=== PATIENT | male | born 1950 | race Caucasian/White ===

== ENCOUNTER 2017-08-03 07:50 | Day surgery (SDC) | payer MEDICARE ==
[2017-08-03] MEDS ORDERED: Marcaine 0.5% SDV 10 ML IJ ONE (07:51)
[2017-08-03] MEDS ORDERED: Xylocaine-Mpf 2 ML IJ ONE (07:51)
[2017-08-03] MEDS ORDERED: DIPRIVAN 200 MG/20 ML IV ONE (07:51)
[2017-08-03] MEDS ORDERED: LIDOCAINE HCL 2% 100 MG/5 ML IJ ONE (07:51)
[2017-08-03] MEDS ORDERED: Lactated Ringers 1,000 ML IV ONE (09:13)
--- NOTE | 2017-08-03 10:21 | XRAY ---
Indication: Left knee GNB. Intraoperative fluoroscopy was provided for 52 seconds. 5 digital spot images submitted for interpretation demonstrates 3 anterior needle tips projecting over the distal femur and 1 anterior needle tip projecting over the proximal medial tibia. Correlate with intraoperative findings/report. Incidental anterior tibial plateau orthopedic tack.
--- NOTE | 2017-08-03 12:29 | XRAY ---
52 seconds fluoroscopy time in surgery for left knee GNB.
--- NOTE | 2017-08-04 07:49 | OP ---
DATE OF PROCEDURE: 08/03/2017 0919 SURGEON: Raman Hoover D.O. PREOPERATIVE DIAGNOSES: Degenerative knee disease, osteoarthritis of the knee, knee pain. POSTOPERATIVE DIAGNOSES: Degenerative knee disease, osteoarthritis of the knee, knee pain. PROCEDURE PERFORMED: Left knee genicular nerve block at four levels of superior-medial genicular nerve, superior-lateral genicular nerve, inferior-medial genicular nerve and nerve to suprapatellar rent block at four levels. DESCRIPTION OF THE PROCEDURE: The patient was taken to the operating room and laid in the supine position on the table. The skin over the injection site was prepped and draped in sterile fashion. Under fluoroscope, the target bony structure site was visualized. Induction agent was given as per anesthesia while vital signs were monitored. Local anesthetic agent was introduced to anesthetize the skin in the subcutaneous tissue through the injection site. Under fluoroscopic guidance, a 20-gauge spinal needle was advanced into the target genicular nerves. The preservative free 0.5 cc of 1% lidocaine and 0.5 cc of 0.25 - 0.5% Marcaine were injected into the target nerve. After the needle was removed, the skin was cleansed with alcohol and then a bandage was applied. No complications or adverse consequences were observed. The patient was returned to the holding area until stabilized before being discharged to home. Before the procedure the pain level is 7 out of 10 and after the procedure the pain level is 0 out of 10. The patient will be followed up within 10 days after the injection for re-evaluation.
== END 2017-08-03 10:00 | disposition home or self-care (01) ==
LOC: SDC-PAIN 07:50
PROVIDERS: ATTEND Internal Medicine
DX: M25.552 Pain in left hip (principal); M25.561 Pain in right knee; M62.838 Other muscle spasm; L90.5 Scar conditions and fibrosis of skin
CPT/HCPCS: 64450; 73560; 77003; J2704

== ENCOUNTER 2019-06-04 09:16 | Day surgery (SDC) | payer MEDICARE ==
--- NOTE | 2019-06-04 09:11 | HP ---
AMENDED REPORT: DATE OF SURGERY: 06/04/2019 HISTORY OF PRESENT ILLNESS: The patient is a 68 year-old with no prior colonoscopy. He had an episode of bright rectal bleeding a month ago. No prior colonoscopy. PAST MEDICAL HISTORY: Heart disease and had stents in the past. Diabetes, hypertension. Arthritis. Hypertension. Kidney stones. Back problems. Migraines. Obstructive sleep apnea. Atrial fibrillation in the past. History of psoriasis in the past. He has had scar tissue redness since age 14. PAST SURGICAL HISTORY: He had stents in the past. He had ablation in the past. Knee surgery in the past on left and right. Shoulder surgery on left and right. Had laceration repair in the past. He had hip fracture in the past. Back surgery in the past. Hand surgery in the past. MEDICATIONS: Sumatriptan, Spironolactone, Provigil, metoprolol, Metformin, magnesium oxide, losartan, Klor-Con, Jardiance, hydrocodone, gabapentin, famotidine, Eliquis, clopidogrel, Bydureon. ALLERGIES: SULFA. ATORVASTATIN. FAMILY HISTORY: Negative in regards to this problem. SOCIAL HISTORY: Denies smoking. Occasional alcohol use denies abuse. REVIEW OF SYSTEMS: Fourteen systems reviewed pertinent for multiple medical problems as noted above. PHYSICAL EXAMINATION: GENERAL: No acute distress. HEENT: Sclerae nonicteric. NECK: No JVD. CHEST: Equal excursion, nonlabored breathing. CVS: Regular rate and rhythm. ABDOMEN: Soft. No peritoneal signs. EXTREMITIES: No significant edema. NEURO: Alert, oriented, moving extremities symmetrically. No gross motor deficits noted. RECTAL: Deferred timed to endoscopy exam. IMPRESSION: History of one episode rectal bleeding, history of blood thinner use. He has cardiac clearance. His blood thinners are held. Will proceed with outpatient screening colonoscopy as he has not had a prior one. Risks and benefits explained in detail, not limited to bleeding or infection, risk of bowel injury or perforation possibly requiring open procedure, risk of missed or nondiagnosis or incomplete exam possibly requiring barium enema, other studies or procedures, general risk of anesthesia or sedation, possibility of inability to determine the etiology of his rectal bleeding but not limited to. He understands all of the above but not limited to, will proceed with outpatient screening colonoscopy.
[2019-06-04] MEDS ORDERED: Lactated Ringers 1,000 ML IV ONE ×2 (09:29→12:14)
[2019-06-04] MEDS: Lactated Ringers 1,000 ML IV SCH (09:35)
[2019-06-04] MEDS ORDERED: DIPRIVAN 200 MG/20 ML IV ONE ×2 (12:13)
[2019-06-04 13:40] VITALS: O2SAT 97
[2019-06-04 13:49] VITALS: BP 151/102; PULSE 64
--- NOTE | 2019-06-05 08:37 | OP ---
SURGERY DATE/TIME: 06/04/2019 1156 PREOPERATIVE DIAGNOSIS: Need for screening colonoscopy. He has history of some rectal bleeding in the past but not currently. POSTOPERATIVE DIAGNOSES: 1) Diverticulosis. 2) Redundant folds sigmoid colon. 3) Grade II internal and external hemorrhoids. 4) Limited bowel prep (adequate for avoid missing any large lesions, obstructing lesion but limited for very small lesions given the overall quality of prep). PROCEDURES: Colonoscopy to cecum with cold biopsy of the redundant fold sigmoid colon. SURGEON: Dr. Ezequiel Westbrook. ANESTHESIA: MAC. CIRCULAR KNITTER: Fany Prasad, Medical Student III. ESTIMATED BLOOD LOSS: Minimal. INDICATIONS: As noted above. Risks and benefits explained in detail but not limited to and consent obtained. DESCRIPTION OF PROCEDURE AND FINDINGS: The patient is taken to the operating room. MAC anesthesia introduced. After official time out and no disagreement with planned procedure, digital rectal exam did not reveal any rectal masses. He did have some internal and external hemorrhoids. Video colonoscope inserted and passed up through the tortuous sigmoid, descending, transverse colon and ascending colon. With external pressure the scope was able to be passed. Cecum, appendiceal orifice and valve well visualized. Prep overall was limited with a large amount of liquidy semi-solid stool limiting the exam for very small lesions. However, I felt it was adequate enough to avoid missing any large polyps or obstructing lesions. The scope is slowly and carefully withdrawn. He did have diverticulosis mainly in the left colon. Again, the prep was limited for small lesions. The scope is slowly and carefully withdrawn over the next 9 minutes stopping to suction irrigate as clear as possible. There was redundant fold. Whether he had polyp on that in the past or whether just redundant tissue it was felt to warrant biopsy. Cold biopsy taken. Good hemostasis noted. Otherwise he had diverticulosis, had internal and external hemorrhoids. There were no signs of any large polyps, masses or obstructing lesions. Again, the prep did limit the exam for very small lesions. It was felt that if his path is benign given the quality of his prep, likely he would benefit from follow up colonoscopy in five years. Await ultimate recommendation following final path report.
== END 2019-06-04 13:50 | disposition home or self-care (01) ==
LOC: SDC 09:16
PROVIDERS: ATTEND Surgery
DX: Z12.11 Encounter for screening for malignant neoplasm of colon (principal); K57.30 Diverticulosis of large intestine without perforation or abscess without bleeding; K64.4 Residual hemorrhoidal skin tags; K64.8 Other hemorrhoids; E11.9 Type 2 diabetes mellitus without complications; I10 Essential (primary) hypertension; G47.33 Obstructive sleep apnea (adult) (pediatric); Z86.79 Personal history of other diseases of the circulatory system; Z79.899 Other long term (current) drug therapy
CPT/HCPCS: 82962; G0121; J2704

== ENCOUNTER 2021-05-12 10:29 | Emergency (ER) | payer MEDICARE ==
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
--- NOTE | 2021-05-12 11:26 | XRAY ---
Indication: Chest pain short of breath. Comparison: February 21, 2021. Portable chest demonstrates new cardiomegaly and mild interstitial edema favoring early cardiac decompensation/CHF. Superimposed pneumonia not completely excluded. Bony thorax intact again with osteopenia, degenerative changes, and bilateral shoulder surgery.
[2021-05-12 11:36] LABS: Absolute Neutrophil Ct (ANC) 4.78 (1.4-6.9); Basophil (Absolute #) 0.01 (0-0.4); Eosinophil % 2.4 % (0.00-5.0); Eosinophil (Absolute #) 0.17 (0-0.5); Hematocrit 42.3 % (42-50); Hemoglobin 12.7 gm/dl (12.5-18.0); Lymphocyte (Absolute #) 1.11 (1.0-4.6); Lymphocytes % 15.9 % (24.0-44.0); Mean Corpuscular Hemoglobin 27.6 pg (26-32); Mean Platelet Volume 10.3 fl (7.5-11.0); Monocyte (Absolute #) 0.93 (0.0-1.3); Monocytes % 13.3 % (0.0-12.0); Neutrophil % 68.3 % (36.0-66.0); Platelet Count 270 K/mm3 (150-450)
[2021-05-12 11:40] LABS: INR 1.5 (0.8-3.0); PROTIME 17.7 SECONDS (9.4-12.5)
[2021-05-12 11:51] LABS: COVID AG -BINAX NOW RAPID TEST NEGATIVE (NEGATIVE)
[2021-05-12 11:56] LABS: INFLUENZA A NEGATIVE (NEGATIVE); INFLUENZA B NEGATIVE (NEGATIVE)
[2021-05-12] MEDS ORDERED: Lasix 40 MG/4 ML IV ONE (11:59)
[2021-05-12] MEDS ORDERED: Lasix 40 MG/4 ML ONE (12:01)
[2021-05-12] MEDS ORDERED: Ativan 2 MG/1 ML VIAL IV ONE (12:09)
[2021-05-12] MEDS ORDERED: Ativan 2 MG/1 ML VIAL ONE (12:15)
[2021-05-12 12:35] LABS: ALBUMIN 3.8 g/dL (3.5-5.0); ALKALINE PHOSPHATASE 64 U/L (38-126); ANION GAP 13.9 MEQ/L (5-15); BLOOD UREA NITROGEN 24 mg/dL (9-20); CHLORIDE 105 mmol/L (98-107); Calcium 9.4 mg/dL (8.4-10.2); Carbon Dioxide 25 mmol/L (22-30); Creatinine 1 1.12 mg/dL (0.66-1.25); EST GLOMERULAR FILTRATION RATE > 60.0 ML/MIN; Glucose 131 mg/dL (74-106); Potassium 4.8 mmol/L (3.5-5.1); SGOT/AST 20 U/L (17-59); SGPT/ALT 15 U/L (0-50); SODIUM 139 mmol/L (137-145); Total Protein 6.3 g/dL (6.3-8.2)
--- NOTE | 2021-05-12 13:47 | XRAY ---
Indication: Short of breath. Elevated d-dimer. Multiple contiguous images obtained through the chest using 100 cc Isovue 370 contrast and PE protocol. Comparison: None Good opacification of the pulmonary arteries to includes the lobar and segmental branches. No pulmonary embolus. Heart is enlarged. Aorta is mildly arteriosclerotic without aneurysm/dissection. Incompletely visualized thyromegaly. 2.3 x 2.0 cm right paratracheal prominent lymph node. Tiny right hilar calcified nodes. Lungs demonstrates diffuse pulmonary edema with tiny effusions, right greater than left. Minimal bibasilar subsegmental atelectasis/scarring. No suspicious pulmonary mass. Bony thorax intact with mild osteopenia and mild degenerative changes throughout the thoracic spine. Limited upper abdomen demonstrates tiny splenic calcified granulomas and 2.2 cm left mid renal exophytic cyst. Impression: 1. Negative pulmonary embolus. 2. Cardiomegaly, pulmonary edema, and tiny bilateral effusions favoring cardiac decompensation/CHF. 3. Nonspecific 2.3 x 2.0 cm right paratracheal adenopathy. 4. Incidental incompletely visualized thyromegaly, left renal cyst, chronic bony findings, and old granulomatous disease.
[2021-05-12 14:19] VITALS: BP 129/106; PULSE 68; O2SAT 98
== END 2021-05-12 14:29 | disposition home or self-care (01) ==
LOC: ED 10:29
DX: I11.0 Hypertensive heart disease with heart failure (principal); I50.9 Heart failure, unspecified; R06.02 Shortness of breath; I48.20 Chronic atrial fibrillation, unspecified; Z79.01 Long term (current) use of anticoagulants; I25.10 Atherosclerotic heart disease of native coronary artery without angina pectoris; E11.9 Type 2 diabetes mellitus without complications; Z79.84 Long term (current) use of oral hypoglycemic drugs; G47.33 Obstructive sleep apnea (adult) (pediatric); Z79.891 Long term (current) use of opiate analgesic; Z79.899 Other long term (current) drug therapy
CPT/HCPCS: 36000; 36415; 71045; 71260; 80053; 83605; 83880; 84484; 85025; 85379; 85610; 86308; 87040; 87400; 87651; 93005; 93041; 94760; 96374; 96375; 99000; 99284; J1940; J2060

== ENCOUNTER 2021-12-12 04:50 | Emergency (ER) | payer MEDICARE ==
[2021-12-12] MEDS ORDERED: XYLOCAINE 1%/Epi 1:100000 MDV 20 ML IJ ONE (04:51)
[2021-12-12 04:57] VITALS: O2SAT 96
--- NOTE | 2021-12-12 05:16 | ERPHSYRPT ---
- History of Present Illness Time Seen by Provider: 12/12/21 05:10 Source: patient Exam Limitations: no limitations Patient Subjective Stated Complaint: woke up with mouth bleeding and couldn't get it to stop Triage Nursing Assessment: pt ambulated back into ER. Pt has bleeding to right lower back gum area. Pt states, "I woke up around 4am and my mouth was bleeding and I couldn't get it to stop". Pt had tooth pulled to that area in August. Rt g um area is currently not bleeding and has clot formed to area. Physician History: 71-year-old male with history of atrial fibrillation on Eliquis presented in the ER with chief complaint of bleeding from right lower jaw at tooth extraction site which was done many months ago. Patient reports having feeling of a small tissue while asleep and noticed that he was bleeding with a clot around gums. No pain or known trauma noticed. It was continue to bleed and on presentation he finally has made a clot and no active bleeding. Timing/Duration: abrupt onset Severity: mild ENT Location: dental Associated Symptoms: denies symptoms Allergies/Adverse Reactions: Sulfa (Sulfonamide Antibiotics) Allergy (Unknown, Verified 05/12/21 10:37) pt had reaction as a child, he does not know what happened. empagliflozin [From Jardiance] Adverse Reaction (Severe, Verified 12/12/21 05:05) UTI atorvastatin Adverse Reaction (Mild, Verified 12/12/21 05:04) Joint Aches Home Medications: Apixaban [Eliquis 5 mg Tablet] 5 mg PO BID 07/16/16 [History] Gabapentin [Neurontin] 150 - 300 mg PO BID 07/16/16 [History] Losartan Potassium [Cozaar] 100 mg PO DAILY 07/16/16 [History] Magnesium Oxide 400 mg [Mag-Ox 400] 400 mg PO DAILY 07/16/16 [History] Metformin HCl 1,000 mg PO BID 07/16/16 [History] Metoprolol Succinate 50 mg [Toprol Xl 50 MG] 50 mg PO DAILY 07/16/16 [History] SUMAtriptan succinate [Imitrex] 50 mg PO .PRN 07/16/16 [History] Spironolactone 25 mg [Aldactone 25 MG] 25 mg PO DAILY 07/16/16 [History] Empagliflozin [Jardiance] 10 mg PO DAILY 05/25/19 [History] Hydrocodone/Acetaminophen [Hydrocodon-Acetaminophn 10-500] 1 each PO QID 05/25/19 [History] Ixekizumab [Taltz Autoinjector] 80 mg SQ DIRECTIONS UNKNOWN 05/25/19 [History] Potassium Chloride Tab* [Klor Con] 40 meq PO DAILY 05/25/19 [History] Simvastatin 10 mg PO DAILY 05/25/19 [History] Exenatide Microspheres [Bydureon Bcise] 2 mg SQ WEEKLY 06/04/19 [History] Hx Tetanus, Diphtheria Vaccination/Date Given: Yes Hx Influenza Vaccination/Date Given: No Hx Pneumococcal Vaccination/Date Given: Yes Immunizations Up to Date: Yes Travel Risk - International Travel Have you traveled outside of the country in past 3 weeks: No - Coronavirus Screening Are you exhibiting any of the following symptoms?: No Close contact with a COVID-19 positive Pt in past 14-21 Days: No - Vaccine Status Have you recieved a Covid-19 vaccination: Yes Repairer Handtools: Unknown - Vaccination Dates Date of 2cond Vaccination (if applicable): . Dates if Unknown: . - Review of Systems Constitutional: No Symptoms Eyes: No Symptoms Respiratory: No Symptoms Cardiac: No Symptoms Abdominal/Gastrointestinal: No Symptoms Musculoskeletal: No Symptoms Skin: No Symptoms Neurological: No Symptoms Hematologic/Lymphatic: Easy Bleeding, Gum Bleeding Immunological/Allergic: No Symptoms - Past Medical History Pertinent Past Medical History: Yes Neurological History: No Pertinent History ENT History: Cataracts Cardiac History: Arrhythmia, Coronary Artery Disease Respiratory History: Sleep Apnea Endocrine Medical History: Diabetes Type II Musculoskeletal History: Arthritis GI Medical History: GI Bleed History: No Pertinent History Psycho-Social History: No Pertinent History Male Reproductive Disorders: No Pertinent History - Past Surgical History Past Surgical History: Yes Neuro Surgical History: No Pertinent History Cardiac: Other Respiratory: No Pertinent History Gastrointestinal: No Pertinent History Genitourinary: No Pertinent History Musculoskeletal: Other Male Surgical History: No Pertinent History Other Surgical History: cardiac ablation, bilateral knee acl and other procedures, multiple knee surgeries. bilateral rotator cuff repairs. bilat shoulders,elbow surgery bilat with rods places then removed rods, right wrist surgery, broken ribs pneumothorax from fall 1994, - Social History Smoking Status: Never smoker Exposure to second hand smoke: No Drug Use: none Patient Lives Alone: Yes - Nursing Vital Signs Nursing Vital Signs: Initial Vital Signs Temperature 97.4 F 12/12/21 04:55 Pulse Rate 68 12/12/21 04:55 Respiratory Rate 18 12/12/21 04:55 Blood Pressure 105/70 12/12/21 04:55 O2 Sat by Pulse Oximetry 96 12/12/21 04:55 Pain Scale Pain Intensity 0 - Physical Exam General Appearance: no apparent distress, alert Eye Exam: bilateral eye: normal inspection, PERRL, EOMI Ear Exam: bilateral ear: auricle normal Nasal Exam: normal inspection Throat Exam: normal, pharynx normal, moist mucus membranes, No dental tenderness (Right lower premolar area tooth extraction site bleeding with a clot formation. No active bleeding at present. No gingival swelling.) Neck Exam: normal inspection, non-tender, full range of motion Neurologic Exam: alert, oriented x 3, cooperative Skin Exam: normal color SpO2 Interpretation: normal SpO2: 96 O2 Delivery: Oxymizer - Progress Progress: improved Progress Note: 12/12/21 05:55 patient does have a clot formation already. Given lidocaine with epi soaked dental ball, observed for almost half an hour with no rebleeding. I believe patient probably have a bite/injury to the gum causing bleeding. Recommended outpatient dental follow-up. We will continue with Conor. Counseled pt/family regarding: diagnosis, need for follow-up - Departure Departure Disposition: Home Clinical Impression: Gingival bleeding Condition: Stable Critical Care Time: No Referrals: MARY GRISSOM MD [Primary Care Provider] - Follow Up with PCP/3 days Instructions: Periodontal Disease Additional Instructions: Follow-up with primary care and dentist for reevaluation early next week. Return to ER for worsening bleeding. Continue with Conor.
[2021-12-12 06:05] VITALS: PULSE 89
[2021-12-12 06:06] VITALS: BP 103/73
== END 2021-12-12 06:14 | disposition home or self-care (01) ==
LOC: ED 04:50
DX: K06.8 Other specified disorders of gingiva and edentulous alveolar ridge (principal); E11.9 Type 2 diabetes mellitus without complications; Z79.01 Long term (current) use of anticoagulants; Z79.84 Long term (current) use of oral hypoglycemic drugs; Z79.899 Other long term (current) drug therapy
CPT/HCPCS: 99281

== ENCOUNTER 2022-03-16 09:22 | Emergency (ER) | payer MEDICARE ==
--- NOTE | 2022-03-16 09:28 | ERPHSYRPT ---
- History of Present Illness Time Seen by Provider: 03/16/22 09:28 Source: patient Exam Limitations: no limitations Physician History: This is a 71-year-old white male patient of Dr. Grissom who underwent a right knee replacement approxi-1 month ago. Patient has a history of coronary artery disease and atrial fibrillation and is taking Eliquis. Approximately 2 days ago he noticed drainage from 2 sites on the anterior right knee incision line. There was no odor to the area and the patient has not had any fevers. He called his orthopedic surgeon yesterday and has only taken 2 doses of the antibiotics that he was placed on yesterday. 1 dose was last evening and the second dose was this morning. Patient was concerned about the drainage that was coming from the incision site. He denies any increased pain. Timing/Duration: day(s) (2) Severity: mild Location: extremities (Incision line right anterior knee) Associated Symptoms: denies symptoms Allergies/Adverse Reactions: Sulfa (Sulfonamide Antibiotics) Allergy (Unknown, Verified 03/16/22 09:26) pt had reaction as a child, he does not know what happened. empagliflozin [From Jardiance] Adverse Reaction (Severe, Verified 03/16/22 09:26) UTI atorvastatin Adverse Reaction (Mild, Verified 03/16/22 09:26) Joint Aches Home Medications: Apixaban [Eliquis 5 mg Tablet] 5 mg PO BID 07/16/16 [History] Gabapentin [Neurontin] 150 - 300 mg PO BID 07/16/16 [History] Losartan Potassium [Cozaar] 100 mg PO DAILY 07/16/16 [History] Magnesium Oxide 400 mg [Mag-Ox 400] 400 mg PO DAILY 07/16/16 [History] Metformin HCl 1,000 mg PO BID 07/16/16 [History] Metoprolol Succinate 50 mg [Toprol Xl 50 MG] 50 mg PO DAILY 07/16/16 [History] SUMAtriptan succinate [Imitrex] 50 mg PO .PRN 07/16/16 [History] Spironolactone 25 mg [Aldactone 25 MG] 25 mg PO DAILY 07/16/16 [History] Empagliflozin [Jardiance] 10 mg PO DAILY 05/25/19 [History] Hydrocodone/Acetaminophen [Hydrocodon-Acetaminophn 10-500] 1 each PO QID 05/25/19 [History] Ixekizumab [Taltz Autoinjector] 80 mg SQ DIRECTIONS UNKNOWN 05/25/19 [History] Potassium Chloride Tab* [Klor Con] 40 meq PO DAILY 05/25/19 [History] Simvastatin 10 mg PO DAILY 05/25/19 [History] Exenatide Microspheres [Bydureon Bcise] 2 mg SQ WEEKLY 06/04/19 [History] Hx Tetanus, Diphtheria Vaccination/Date Given: Yes Hx Influenza Vaccination/Date Given: No Hx Pneumococcal Vaccination/Date Given: Yes Travel Risk - International Travel Have you traveled outside of the country in past 3 weeks: No - Coronavirus Screening Are you exhibiting any of the following symptoms?: No Close contact with a COVID-19 positive Pt in past 14-21 Days: No - Vaccine Status Have you recieved a Covid-19 vaccination: Yes Airline 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 Dates if Unknown: . - Review of Systems Constitutional: No Symptoms Eyes: No Symptoms Ears, Nose, & Throat: No Symptoms Respiratory: No Symptoms Cardiac: No Symptoms Abdominal/Gastrointestinal: No Symptoms Genitourinary Symptoms: No Symptoms Musculoskeletal: No Symptoms Skin: Other (Drainage from skin incision site right anterior knee) Neurological: No Symptoms Psychological: No Symptoms Endocrine: No Symptoms Hematologic/Lymphatic: No Symptoms Immunological/Allergic: No Symptoms All Other Systems: Reviewed and Negative - Past Medical History Pertinent Past Medical History: Yes Neurological History: No Pertinent History ENT History: Cataracts Cardiac History: Arrhythmia, Coronary Artery Disease Respiratory History: Sleep Apnea Endocrine Medical History: Diabetes Type II Musculoskeletal History: Arthritis GI Medical History: GI Bleed History: No Pertinent History Psycho-Social History: No Pertinent History Male Reproductive Disorders: No Pertinent History - Past Surgical History Past Surgical History: Yes Neuro Surgical History: No Pertinent History Cardiac: Other Respiratory: No Pertinent History Gastrointestinal: No Pertinent History Genitourinary: No Pertinent History Musculoskeletal: Other Male Surgical History: No Pertinent History Other Surgical History: cardiac ablation, bilateral knee acl and other procedures, multiple knee surgeries. bilateral rotator cuff repairs. bilat shoulders,elbow surgery bilat with rods places then removed rods, right wrist surgery, broken ribs pneumothorax from fall 1994, - Social History Smoking Status: Never smoker Exposure to second hand smoke: No Drug Use: none Patient Lives Alone: Yes - Nursing Vital Signs Nursing Vital Signs: Initial Vital Signs Temperature 97.0 F 03/16/22 09:32 Pulse Rate 72 03/16/22 09:32 Respiratory Rate 19 03/16/22 09:32 Blood Pressure 97/60 03/16/22 09:32 O2 Sat by Pulse Oximetry 98 03/16/22 09:32 Pain Scale Pain Intensity 0 - Physical Exam General Appearance: no apparent distress, alert, anxiety Eye Exam: PERRL/EOMI, eyes nml inspection Ears, Nose, Throat Exam: normal ENT inspection, moist mucous membranes Neck Exam: normal inspection, non-tender, supple, full range of motion Respiratory Exam: airway intact, No chest tenderness, No respiratory distress Cardiovascular Exam: normal peripheral pulses Gastrointestinal/Abdomen Exam: No tenderness Rectal Exam: not done Back Exam: normal inspection, normal range of motion, No CVA tenderness, No vertebral tenderness Extremity Exam: normal inspection, normal range of motion, pelvis stable Neurologic Exam: alert, oriented x 3, cooperative, 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 Small amount of pus from the upper skin dehiscence site. Serosanguineous fluid present.) SpO2 Interpretation: normal O2 Delivery: Room Air - Course Nursing assessment & vital signs reviewed: Yes Ordered Tests: Active Orders 24 hr Category Date Time Status CULTURE,WOUND Stat Lab 03/16/22 09:41 Ordered - Progress Progress: unchanged Counseled pt/family regarding: diagnosis, need for follow-up - Departure Departure Disposition: Home Clinical Impression: Postoperative dehiscence of skin wound, Skin infection of right knee Condition: Critical Care Time: No Referrals: MARY GRISSOM MD [Primary Care Provider] - Follow up/PCP as directed Additional Instructions: Minimize bending of the right knee. Keep the current dressing in place until the morning of 03/17/2022. At that time, remove the Jimy bandage and the underlying bandage and wash the site with soap and water. Blot dry use a hairdryer to dry the site and then replace a new bandage and rewrap with the old Jimy wrap. Keep that dressing on until Thursday morning, the morning of your appointment with your orthopedic surgeon. Continue antibiotics as prescribed. Stop your Eliquis blood thinning medication.
[2022-03-16 09:38] VITALS: BP 97/60; PULSE 72; O2SAT 98
== END 2022-03-16 10:14 | disposition home or self-care (01) ==
LOC: ED 09:22
DX: T81.31XA Disruption of external operation (surgical) wound, not elsewhere classified, initial encounter (principal); T81.41XA Infection following a procedure, superficial incisional surgical site, initial encounter; L08.9 Local infection of the skin and subcutaneous tissue, unspecified; E11.9 Type 2 diabetes mellitus without complications; Z79.01 Long term (current) use of anticoagulants; Z79.891 Long term (current) use of opiate analgesic; Z79.899 Other long term (current) drug therapy
CPT/HCPCS: 87070; 87077; 87186; 99283

== ENCOUNTER 2023-02-16 15:30 | Observation (INO) | payer MEDICARE ==
--- NOTE | 2023-02-16 15:51 | ERPHSYRPT ---
- History of Present Illness Source: patient Exam Limitations: no limitations Timing/Duration: yesterday Severity: mild Associated Symptoms: shortness of breath, weakness, No chest pain (Occasional, mild) Hx Tetanus, Diphtheria Vaccination/Date Given: Yes Hx Influenza Vaccination/Date Given: No Hx Pneumococcal Vaccination/Date Given: Yes <BEE KELSEY - Last Filed: 02/16/23 19:20> <GALILEO DÍAZ - Last Filed: 02/16/23 20:57> - History of Present Illness Time Seen by Provider: 02/16/23 15:51 Physician History: This is a 72-year-old white male who is a patient of Dr. 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 Patient is on Eliquis and amiodarone for treatment of atrial fibrillation. He has had cardiac ablation twice and also cardioversion in the past. Recently, he had a watchman's device placed. Patient states he is still taking Eliquis. However, he is unsure whether he took his medicine this morning. His son provided additional, independent history and states that this patient has been a little more confused over the last few days. His blood sugar level on arrival to the emergency department 163. His initial blood pressure upon entrance in the emergency department was approximately 151/102. However, after 2 more readings, without any pharmacologic intervention, the blood pressure was approximately 147/94. Patient denies chest pain. He is on occasion short of breath. After his procedure of placement of watchman's device, patient had experienced some congestive heart failure. He did take a as needed Lasix a couple days ago. Patient has not had a cough. He has not had a fever. Patient has multiple medical problems including diabetes, migraine headaches, hyperlipidemia, hypothyroidism, diabetes and coronary artery disease. He does have a history of hypertension. Patient has had a cardiac stent placed in the past and has undergone a CABG procedure. (BEE KELSEY) Allergies/Adverse Reactions: Sulfa (Sulfonamide Antibiotics) Allergy (Unknown, Verified 02/16/23 15:40) pt had reaction as a child, he does not know what happened. empagliflozin [From Jardiance] Adverse Reaction (Severe, Verified 02/16/23 15:40) UTI atorvastatin Adverse Reaction (Mild, Verified 02/16/23 15:40) Joint Aches Home Medications: Amiodarone HCl 200 mg [Cordarone 200 MG] 1 tab PO DAILY 02/16/23 [History] Amlodipine Besylate 5 mg [Norvasc 5 mg] 0 mg PO DAILY 02/16/23 [History] Apixaban [Eliquis] See Rx Instructions .ROUTE .COMPLEX 02/16/23 [History] Aspirin EC 81 mg [Ecotrin 81 mg] 1 tab PO DAILY 02/16/23 [History] Aspirin/Acetaminophen/Caffeine [Excedrin Extra Strength Caplet] 1 each PO DAILY PRN PRN 02/16/23 [History] Furosemide [Lasix] 1 tab PO DAILY PRN 02/16/23 [History] Hydrocodone/Acetaminophen [Hydrocodone-Acetamin 7.5-325] 1 tab PO QID PRN 02/16/23 [History] Metformin HCl 500 mg [Glucophage 500 MG] 1,000 mg PO BID 02/16/23 [History] Methimazole 10 mg PO DAILY 02/16/23 [History] Metoprolol Succinate 50 mg [Toprol Xl 50 MG] 1 tab PO DAILY 02/16/23 [History] Semaglutide [Ozempic] 0.25 mg SQ WEEKLY 02/16/23 [History] Tamsulosin HCl 0.4 mg [Flomax 0.4 MG] 1 cap PO DAILY 02/16/23 [History] Travel Risk - International Travel Have you traveled outside of the country in past 3 weeks: No - Coronavirus Screening Are you exhibiting any of the following symptoms?: Yes Symptoms: Shortness of Breath Close contact with a COVID-19 positive Pt in past 14-21 Days: No - Vaccine Status Have you recieved a Covid-19 vaccination: Yes Bumboater: Unknown - Vaccination Dates Date of 2cond Vaccination (if applicable): . Dates if Unknown: . <BEE KELSEY - Last Filed: 02/16/23 19:20> - Review of Systems Constitutional: Weakness Eyes: No Symptoms Ears, Nose, & Throat: No Symptoms Respiratory: Dyspnea (Mild) Cardiac: No Symptoms Abdominal/Gastrointestinal: No Symptoms Genitourinary Symptoms: No Symptoms Musculoskeletal: No Symptoms Skin: No Symptoms Neurological: Other (Vision change in his left eye over a day ago) Psychological: No Symptoms Endocrine: No Symptoms Hematologic/Lymphatic: No Symptoms Immunological/Allergic: No Symptoms All Other Systems: Reviewed and Negative <BEE KELSEY - Last Filed: 02/16/23 19:20> - Past Medical History Pertinent Past Medical History: Yes Neurological History: No Pertinent History ENT History: Cataracts Cardiac History: Arrhythmia, Coronary Artery Disease, High Cholesterol, Hypertension Respiratory History: Sleep Apnea Endocrine Medical History: Diabetes Type II, Hyperthyroidism Musculoskeletal History: Degenerative Disk Disease, Osteoarthritis GI Medical History: GI Bleed History: No Pertinent History Psycho-Social History: No Pertinent History Male Reproductive Disorders: No Pertinent History Other Medical History: HX OF A-FIB WITH CARDIOVERSION X 2 AND SCHEDULED FOR ANOTHER 01/25/23 WITH WATCHMAN PLACEMENT. HX OF CAD WITH CABG X 2 AND STENTS X 2. BILATERAL SHOULDER SXs - LEFT 2006 RC REPAIR, RIGHT 2015 WITH RC AND BICEPS REPAIR. HX OF BILATERAL KNEE REPLACEMENT 02/2022 RIGHT, 07/01 LEFT. HX OF STAPH INFECTION RIGHT REQUIRING SECOND SURGERY. LEFT KNEE HAD HEMATOMA REQUIRING DRAINING AND CONTINUES TO HAVE TENDERNESS. ONLY THERAPY WAS HOME HEALTH. - Past Surgical History Past Surgical History: Yes Neuro Surgical History: No Pertinent History Cardiac: Other Respiratory: No Pertinent History Gastrointestinal: No Pertinent History Genitourinary: No Pertinent History Musculoskeletal: Other Male Surgical History: No Pertinent History Other Surgical History: cardiac ablation, bilateral knee acl and other procedures, multiple knee surgeries. bilateral rotator cuff repairs. bilat shoulders,elbow surgery bilat with rods places then removed rods, right wrist surgery, broken ribs pneumothorax from fall 1994, - Social History Smoking Status: Never smoker Exposure to second hand smoke: No Drug Use: none Patient Lives Alone: Yes <BEE KELSEY - Last Filed: 02/16/23 19:20> - Physical Exam General Appearance: no apparent distress, alert Eye Exam: PERRL/EOMI, eyes nml inspection Ears, Nose, Throat Exam: normal ENT inspection, moist mucous membranes Neck Exam: normal inspection, non-tender, supple, full range of motion Respiratory Exam: normal breath sounds, lungs clear, airway intact, No chest tenderness, No respiratory distress Cardiovascular Exam: regular rate/rhythm, normal heart sounds, normal peripheral pulses Gastrointestinal/Abdomen Exam: soft, normal bowel sounds, No tenderness Rectal Exam: not done Back Exam: normal inspection, normal range of motion, No CVA tenderness Extremity Exam: normal inspection, normal range of motion, pelvis stable Neurologic Exam: alert, oriented x 3, cooperative, 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, normal mood/affect, nml cerebellar function, nml station & gait, sensation nml, No facial droop Skin Exam: normal color, warm, dry Lymphatic Exam: No adenopathy SpO2 Interpretation: normal O2 Delivery: Room Air <BEE KELSEY - Last Filed: 02/16/23 19:20> - Nursing Vital Signs Nursing Vital Signs: Initial Vital Signs Temperature 98.1 F 02/16/23 15:30 Pulse Rate 70 02/16/23 15:30 Respiratory Rate 28 H 02/16/23 15:30 Blood Pressure 152/103 02/16/23 15:30 O2 Sat by Pulse Oximetry 96 02/16/23 15:30 Pain Scale Pain Intensity 3 - Course Nursing assessment & vital signs reviewed: Yes EKG Interpreted by Me: RATE (68), Sinus Rhythm, Right [place] Deviation (Borderline), NORMAL INTERVALS, NORMAL QRS, NORMAL ST-T, Other (No acute isch emic changes on today's twelve-lead EKG.) <BEE KELSEY - Last Filed: 02/16/23 19:20> Ordered Tests: Active Orders 24 hr Category Date Time Status Hull Grinder STAT Care 02/16/23 16:00 Active EKG-ER Only STAT Care 02/16/23 16:00 Active IV Insertion STAT Care 02/16/23 16:00 Active POCT Glucose Check STAT Care 02/16/23 15:48 Active Pulse Oximetry (ED) STAT Care 02/16/23 16:00 Active CHEST 1 VIEW (PORTABLE) Stat Exams 02/16/23 16:13 Completed HEAD WITHOUT CONTRAST [CT] Stat Exams 02/16/23 16:01 Completed CBC W DIFF Stat Lab 02/16/23 16:10 Completed CMP Stat Lab 02/16/23 16:10 Completed MAGNESIUM Stat Lab 02/16/23 16:10 Completed NT PRO BNPII Stat Lab 02/16/23 16:10 Completed POCT GLUCOSE Stat Lab 02/16/23 15:44 Completed T4 (Thyroxine) Stat Lab 02/16/23 16:10 Completed TROPONIN Q4H Lab 02/16/23 16:10 Completed TROPONIN Q4H Lab 02/16/23 20:32 Received TROPONIN Q4H Lab 02/17/23 00:00 Ordered TSH [TSH, 3RD Generation] Stat Lab 02/16/23 16:10 Completed UA W/RFX UR CULTURE Stat Lab 02/16/23 16:08 Completed Transfer Order Routine Transfer 02/16/23 Ordered Medication Summary Discontinued Medications Generic Name Dose Route Start Last Admin Trade Name Freq PRN Reason Stop Dose Admin Furosemide 40 mg 02/16/23 16:54 02/16/23 17:10 Furosemide 40 Mg/4 Ml Vial IV 02/16/23 16:55 40 mg STAT ONE Administration Furosemide Confirm 02/16/23 17:05 Furosemide 40 Mg/4 Ml Vial Administered 02/16/23 17:06 Dose 40 mg .ROUTE .STK-MED ONE Morphine Sulfate 2 mg 02/16/23 16:48 02/16/23 16:50 Morphine Sulfate 2 Mg/Ml Inj IV 02/16/23 16:49 Not Given STAT ONE Morphine Sulfate 2 mg 02/16/23 18:28 02/16/23 18:34 Morphine Sulfate 2 Mg/Ml Inj IV 02/16/23 18:29 2 mg STAT ONE Administration Morphine Sulfate Confirm 02/16/23 18:33 Morphine Sulfate 2 Mg/Ml Inj Administered 02/16/23 18:34 Dose 2 mg .ROUTE .STK-MED ONE Ondansetron HCl 4 mg 02/16/23 18:23 02/16/23 18:34 Ondansetron Hcl 4 Mg/2 Ml Vial IV 02/16/23 18:24 4 mg STAT ONE Administration Ondansetron HCl Confirm 02/16/23 18:32 Ondansetron Hcl 4 Mg/2 Ml Vial Administered 02/16/23 18:33 Dose 4 mg .ROUTE .STK-MED ONE Lab/Rad Data: Laboratory Result Diagrams 02/16/23 16:10 02/16/23 16:10 Laboratory Results 02/16/23 02/16/23 02/16/23 Range/Units 16:10 16:10 16:10 WBC (4.0-10.5) x10^3/uL RBC (4.1-5.6) x10^6/uL Hgb (12.5-18.0) g/dL Hct (42-50) % MCV (78-100) fL MCH (26-32) pg MCHC (32-36) g/dL RDW (11.5-14.0) % Plt Count (150-450) x10^3/uL MPV (7.5-11.0) fL Gran % (36.0-66.0) % Immature Gran % (Auto) (0.00-0.4) % Nucleat RBC Rel Count (0.00-0.1) % Eos # (Auto) (0-0.5) x10^3/uL Immature Gran # (Auto) (0.00-0.03) x10^3u/L Absolute Lymphs (auto) (1.0-4.6) x10^3/uL Absolute Monos (auto) (0.0-1.3) x10^3/uL Absolute Nucleated RBC (0.00-0.01) x10^3u/L Lymphocytes % (24.0-44.0) % Monocytes % (0.0-12.0) % Eosinophils % (0.00-5.0) % Basophils % (0.0-0.4) % Absolute Granulocytes (1.4-6.9) x10^3/uL Basophils # (0-0.4) x10^3/uL Sodium 133 L (137-145) mmol/L Potassium 5.0 (3.5-5.1) mmol/L Chloride 102 (98-107) mmol/L Carbon Dioxide 21 L (22-30) mmol/L Anion Gap 14.8 (5-15) MEQ/L BUN 30 H (9-20) mg/dL Creatinine 1.11 (0.66-1.25) mg/dL Estimated GFR 71.4 ML/MIN Glucose 153 H (74-106) mg/dL POC Glucometer (74 to 106) mg/dL Calcium 9.2 (8.4-10.2) mg/dL Magnesium 2.1 (1.6-2.3) mg/dL Total Bilirubin 0.50 (0.2-1.3) mg/dL AST 19 (17-59) U/L ALT 20 (0-50) U/L Alkaline Phosphatase 117 (38-126) U/L Troponin I 0.025 (0.000-0.034) ng/mL NT-Pro-B Natriuret Pep 2510 (<300) pg/mL Serum Total Protein 6.0 L (6.3-8.2) g/dL Albumin 3.6 (3.5-5.0) g/dL Thyroxine (T4) 14.7 H (5.53-10.96) ug/dL TSH 3rd Generation < 0.015 L (0.47-4.68) mIU/L Urine Color (Yellow) Urine Appearance (Clear) Urine pH (4.6-8.0) Ur Specific [place] (1.005-1.030) Urine Protein (Negative) Urine Glucose (UA) (Negative) mg/dL Urine Ketones (Negative) Urine Blood (Negative) Urine Nitrite (Negative) Urine Bilirubin (Negative) Urine Urobilinogen (0.2) mg/dL Ur Leukocyte Esterase (Negative) U Hyaline Cast (Auto) (0-2) /LPF Urine Microscopic RBC (0-5) /HPF Urine Microscopic WBC (0-5) /HPF Ur Epithelial Cells (None Seen) /HPF Urine Bacteria (None Seen) /HPF Urine Culture Reflexed (NO) Slides for Path Review 02/16/23 02/16/23 02/16/23 Range/Units 16:10 16:08 15:44 WBC 10.2 (4.0-10.5) x10^3/uL RBC 3.73 L (4.1-5.6) x10^6/uL Hgb 10.2 L (12.5-18.0) g/dL Hct 34.0 L (42-50) % MCV 91.2 (78-100) fL MCH 27.3 (26-32) pg MCHC 30.0 L (32-36) g/dL RDW 13.7 (11.5-14.0) % Plt Count 355 (150-450) x10^3/uL MPV 9.7 (7.5-11.0) fL Gran % 82.8 H (36.0-66.0) % Immature Gran % (Auto) 0.8 H (0.00-0.4) % Nucleat RBC Rel Count 0.0 (0.00-0.1) % Eos # (Auto) 0.01 (0-0.5) x10^3/uL Immature Gran # (Auto) 0.08 H (0.00-0.03) x10^3u/L Absolute Lymphs (auto) 0.56 L (1.0-4.6) x10^3/uL Absolute Monos (auto) 1.09 (0.0-1.3) x10^3/uL Absolute Nucleated RBC 0.00 (0.00-0.01) x10^3u/L Lymphocytes % 5.5 L (24.0-44.0) % Monocytes % 10.7 (0.0-12.0) % Eosinophils % 0.1 (0.00-5.0) % Basophils % 0.1 (0.0-0.4) % Absolute Granulocytes 8.43 H (1.4-6.9) x10^3/uL Basophils # 0.01 (0-0.4) x10^3/uL Sodium (137-145) mmol/L Potassium (3.5-5.1) mmol/L Chloride (98-107) mmol/L Carbon Dioxide (22-30) mmol/L Anion Gap (5-15) MEQ/L BUN (9-20) mg/dL Creatinine (0.66-1.25) mg/dL Estimated GFR ML/MIN Glucose (74-106) mg/dL POC Glucometer 163 H (74 to 106) mg/dL Calcium (8.4-10.2) mg/dL Magnesium (1.6-2.3) mg/dL Total Bilirubin (0.2-1.3) mg/dL AST (17-59) U/L ALT (0-50) U/L Alkaline Phosphatase (38-126) U/L Troponin I (0.000-0.034) ng/mL NT-Pro-B Natriuret Pep (<300) pg/mL Serum Total Protein (6.3-8.2) g/dL Albumin (3.5-5.0) g/dL Thyroxine (T4) (5.53-10.96) ug/dL TSH 3rd Generation (0.47-4.68) mIU/L Urine Color Yellow (Yellow) Urine Appearance Clear (Clear) Urine pH 6.5 (4.6-8.0) Ur Specific [place] 1.020 (1.005-1.030) Urine Protein Trace A (Negative) Urine Glucose (UA) 100 A (Negative) mg/dL Urine Ketones Negative (Negative) Urine Blood Negative (Negative) Urine Nitrite Negative (Negative) Urine Bilirubin Negative (Negative) Urine Urobilinogen 2.0 A (0.2) mg/dL Ur Leukocyte Esterase Negative (Negative) U Hyaline Cast (Auto) NONE SEEN (0-2) /LPF Urine Microscopic RBC 0-2 (0-5) /HPF Urine Microscopic WBC 0-2 (0-5) /HPF Ur Epithelial Cells None Seen (None Seen) /HPF Urine Bacteria None Seen (None Seen) /HPF Urine Culture Reflexed NO (NO) Slides for Path Review YES - Progress Progress: improved, re-examined Counseled pt/family regarding: lab results, diagnosis, rad results <BEE KELSEY - Last Filed: 02/16/23 19:20> <GALILEO DÍAZ - Last Filed: 02/16/23 20:57> - Progress Progress Note: 02/16/23 16:23 This patient's medical issue is 1 of moderate complexity. The level complexity in the work-up performed is based on review of the patient's past medical histor y, review of the patient's medication list, review the patient's drug allergy list, history present illness and physical findings on examination. The work-up in this patient includes placement of intravenous line, twelve-lead EKG, troponin level, BNP level, chest x-ray, CT scan of the head, CBC, CMP and urinalysis. 02/16/23 16:39 I was just notified by Dr. Calvillo, our in-house radiologist that this patient has a large acute ischemia of the right temporal parietal lobe. No acute hemorrhage/mass effect. There are chronic changes including atrophy, degenerative microischemia and remote lacunar infarct of the right basal ganglia on the CT scan without contrast. 02/16/23 16:45 02/16/23 18:45 We had put a call into [facility] and sent the CT scan of the head results to [facility]. The hospitalist and the neurologist were conversing and ultimately just called us back to tell us that this patient needs to go to a different facility. The [facility] facility is full and cannot accept any patients at this time. We will try another facility. 02/16/23 19:20 [facility] was contacted as well. However, they were only excepting STEMI's and acute strokes. This patient was not excepted. I then spoke to Dr. Galileo Díaz who is taking over for me and the emergency department at shift change. In our opinion, this patient only needs work-up and rehab and no emergent i ntervention required. He is taking over the care of this patient and will contact the telehospitalist and see if they accept this patient for admission here at [facility]. (BEE KELSEY) Patient a 72-year-old male presents to our ED for evaluation of possible stroke. History of atrial fibrillation. Patient on Eliquis. Per report patient has had a Watchman procedure performed. Patient reportedly had a stroke possibly within the past 36 to 48 hours. Area of stroke observed on today's CAT scan at the right parietal region. Patient NIH score was 1. Telemetry neuro advises holding the Eliquis. Patient may have aspirin. Patient requested transfer to [facility] which is where his lmft and primary care provider are. However they currently do not have a bed available. Patient is currently on the wait list. In the meantime patient will be admitted to [facility] per his request. Case discussed with Dr. Murrell at 8:48 PM who accepts admission to observation. Patient reassessed. He is in good spirits he is conversant well-appearing and in no acute distress. Vital stable. Patient voices no other complaints or concerns at this time. Portions of this note were created with voice recognition technology. There may be grammatical, spelling, punctuation or sound alike errors 02/16/23 20:54 (GALILEO DÍAZ) Medical Desision Making - Independent Historian Additional History obtained from: Family - Diagnostic Testing Diagnostic test were ordered, analyzed, and reviewed by me: Yes Radiological Interpretation: Reviewed by me, Teleradiologist Report - Risk of complications The pt has a high risk of morbidity or mortality based on: Decision regarding hospitilization or escalation of hosp level of care <BEE KELSEY - Last Filed: 02/16/23 19:20> - Departure Departure Disposition: Transfer Critical Care Time: Yes Critical Care Time(excluding separately billable procedures): Critical 30-74 mins (50 minutes) <BEE KELSEY - Last Filed: 02/16/23 19:20> - Departure Departure Disposition: Observation <GALILEO DÍAZ - Last Filed: 02/16/23 20:57> - Departure Clinical Impression: Cerebral ischemia, Hypertension Condition: Stable Referrals: MARY GRISSOM MD [Primary Care Provider] - Follow up/PCP as directed
[2023-02-16 16:14] LABS: Absolute Neutrophil Ct (ANC) 8.43 x10^3/uL (1.4-6.9); BASOPHIL % 0.1 % (0.0-0.4); Basophil (Absolute #) 0.01 x10^3/uL (0-0.4); Eosinophil % 0.1 % (0.00-5.0); Eosinophil (Absolute #) 0.01 x10^3/uL (0-0.5); Hemoglobin 10.2 g/dL (12.5-18.0); IMMATURE GRAN # 0.08 x10^3u/L (0.00-0.03); IMMATURE GRAN % 0.8 % (0.00-0.4); Lymphocyte (Absolute #) 0.56 x10^3/uL (1.0-4.6); Lymphocytes % 5.5 % (24.0-44.0); Mean Cell Volume 91.2 fL (78-100); Mean Corpuscular Hemoglobin 27.3 pg (26-32); Mean Platelet Volume 9.7 fL (7.5-11.0); Monocyte (Absolute #) 1.09 x10^3/uL (0.0-1.3); Monocytes % 10.7 % (0.0-12.0); Neutrophil % 82.8 % (36.0-66.0); Platelet Count 355 x10^3/uL (150-450); Red Blood Count 3.73 x10^6/uL (4.1-5.6); Red Cell Distribution Width 13.7 % (11.5-14.0); White Blood Count 10.2 x10^3/uL (4.0-10.5)
[2023-02-16 16:28] LABS: ADD URINE CULTURE? NO (NO); Appearance Clear (Clear); Bacteria None Seen /HPF (None Seen); Bilirubin Negative (Negative); Blood Negative (Negative); Epithelial Cells None Seen /HPF (None Seen); Glucose, Urine 100 mg/dL (Negative); Hyaline Casts NONE SEEN /LPF (0-2); Ketones Negative (Negative); Leukocyte Esterase Negative (Negative); Nitrite Negative (Negative); Ph 6.5 (4.6-8.0); Protein,Urine Dip Trace (Negative); RBC 0-2 /HPF (0-5); WBC 0-2 /HPF (0-5)
[2023-02-16 16:41] LABS: ALBUMIN 3.6 g/dL (3.5-5.0); ANION GAP 14.8 MEQ/L (5-15); BILIRUBIN,TOTAL 0.5 mg/dL (0.2-1.3); Calcium 9.2 mg/dL (8.4-10.2); Creatinine 1 1.11 mg/dL (0.66-1.25); EST GLOMERULAR FILTRATION RATE 71.4 ML/MIN; MAGNESIUM 2.1 mg/dL (1.6-2.3); TROPONIN 0.025 ng/mL (0.000-0.034)
--- NOTE | 2023-02-16 16:45 | XRAY ---
Indication: Short of breath. Hypertension. Comparison: May 19, 2021 Portable chest again demonstrates cardiomegaly and tiny right base calcified granuloma. No focal infiltrate, consolidation, or large effusion. Bony thorax intact again with osteopenia, mild degenerative changes, and remote right shoulder surgery. Impression: Continued nonacute chest with chronic features.
--- NOTE | 2023-02-16 16:45 | XRAY ---
Indication: Left vision change. Confusion. Hypertension. Multiple contiguous axial images obtained through the head without contrast. Comparison: None Age-appropriate global atrophy and mild periventricular degenerative micro-ischemia bilaterally. Remote lacunar infarct right basal ganglia. Right mid to posterior temporal parietal lobe demonstrates large focus of cortical/subcortical hypoattenuation favoring acute ischemia. No acute hemorrhage or mass effect. Fourth ventricle is midline without hydrocephalus. Bony calvarium intact. Visualized paranasal sinuses and mastoid air cells are clear. Impression: 1. Large acute ischemia right temporal parietal lobe. No acute hemorrhage/mass effect. 2. Chronic findings including atrophy, degenerative micro-ischemia, and remote lacunar infarct right basal ganglia. Comment: Telephone report given to the ordering clinician, Dr. Meadows at 1638 hrs. on February 16, 2023.
[2023-02-16] MEDS ORDERED: MORPHINE SULFATE 2 MG INJ IV ONE ×2 (16:48→18:28)
[2023-02-16 16:50] LABS: Slide Review 1 YES
[2023-02-16] MEDS ORDERED: Lasix 40 MG/4 ML IV ONE (16:54)
[2023-02-16] MEDS ORDERED: Lasix 40 MG/4 ML ONE (17:05)
[2023-02-16] MEDS ORDERED: Zofran 4 MG/2 ML VIAL IV ONE (18:23)
[2023-02-16] MEDS ORDERED: Zofran 4 MG/2 ML VIAL ONE (18:32)
[2023-02-16] MEDS ORDERED: MORPHINE SULFATE 2 MG INJ ONE (18:33)
[2023-02-16] MEDS ORDERED: NON-FORMULARY ITEM (Semaglutide [Ozempic] 0.25 MG/0.368 ML Pen.Injctr) SQ SCH (23:45)
[2023-02-16] MEDS ORDERED: ACETAMINOPHEN PO PRN (23:48)
[2023-02-16] MEDS ORDERED: NORCO 7.5/325 MG TAB PO PRN (23:48)
[2023-02-16] MEDS ORDERED: ASPIRIN PO PRN (23:48)
[2023-02-16] MEDS ORDERED: [UNRECOGNIZED DRUG - OTHER] PO PRN (23:48)
[2023-02-16] MEDS ORDERED: CAFFEINE PO PRN (23:48)
--- NOTE | 2023-02-16 23:49 | PCM.HP ---
History of Present Illness - Chief Complaint Chief Complaint: Stroke Date: 02/16/23 History of Present Illness: This is a 72-year-old male admitted after found to have acute stroke. He has past medical history of A-fib on Eliquis and amiodarone as well as prior cardiac ablation and cardioversion and Watchman device, diabetes, hyperlipidemia, hyperthyroid, CAD. He presented to the ED for evaluation of vision changes in the left eye. On arrival he was afebrile, heart rate 70, blood pressure 152/103. Labs significant for WBC 10, hemoglobin 10, platelets 355, sodium 133, serum bicarb 21, glucose 153, TSH undetectable, T4 14.7, UA trace protein and [address] head showed large acute ischemia in the right temporal parietal lobe no hemorrhage or mass effect. Chronic findings including atrophy degenerative microischemia and remote lacunar infarct right basal ganglia. Patient was seen by neurology who recommended continuing aspirin but holding full anticoagulation. Attempts were made to transfer patient for higher level of care however no excepting facility at this time. Currently he reports persistent poor vision. He states right eye is chronically bad. Left eye he is having depth perception difficulties. He also reports new onset [place]. He was feeling dizzy and incoherent but that is better. - Review of Systems Eyes: Vision Changes Ears, Nose, & Throat: No Symptoms Respiratory: No Symptoms Cardiac: No Symptoms Abdominal/Gastrointestinal: No Symptoms Genitourinary Symptoms: No Symptoms Musculoskeletal: No Symptoms Skin: No Symptoms Neurological: No Symptoms Psychological: No Symptoms Endocrine: No Symptoms Medications & Allergies Home Medications: Home Medication List Amiodarone HCl 200 mg [Cordarone 200 MG] 200 mg PO DAILY 02/16/23 [History Confirmed 02/16/23] Amlodipine Besylate 5 mg [Norvasc 5 mg] 0 mg PO DAILY 02/16/23 [History Confirmed 02/16/23] Apixaban [Eliquis] 5 mg PO BID 02/16/23 [History Confirmed 02/16/23] Aspirin EC 81 mg [Ecotrin 81 mg] 81 mg PO DAILY 02/16/23 [History Confirmed 02/16/23] Aspirin/Acetaminophen/Caffeine [Excedrin Extra Strength Caplet] 1 tab PO DAILY PRN PRN 02/16/23 [History Confirmed 02/16/23] Furosemide [Lasix] 40 mg PO DAILY PRN PRN 02/16/23 [History Confirmed 02/16/23] Hydrocodone/Acetaminophen [Hydrocodone-Acetamin 7.5-325] 1 tab PO Q4-6HPRN PRN 02/16/23 [History Confirmed 02/16/23] Metformin HCl 500 mg [Glucophage 500 MG] 1,000 mg PO BIDAC 02/16/23 [History Confirmed 02/16/23] Metoprolol Succinate 50 mg [Toprol Xl 50 MG] 50 mg PO DAILY 02/16/23 [History Confirmed 02/16/23] Non-Formulary Drug [Non-Formulary Bulk Item] 2 tab PO DAILY 02/16/23 [History Confirmed 02/16/23] Rosuvastatin Calcium 10 mg PO QHS 02/16/23 [History Confirmed 02/16/23] Semaglutide [Ozempic] 0.25 mg SQ WEEKLY 02/16/23 [History Confirmed 02/16/23] Sumatriptan Succinate [Imitrex] 100 mg PO DAILY PRN PRN 02/16/23 [History Confi rmed 02/16/23] Tamsulosin HCl 0.4 mg [Flomax 0.4 MG] 0.4 mg PO QHS 02/16/23 [History Confirmed 02/16/23] Allergies/Adverse Reactions: Allergies Allergy/AdvReac Type Severity Reaction Status Date / Time Sulfa (Sulfonamide Allergy Unknown Verified 02/16/23 15:40 Antibiotics) empagliflozin AdvReac Severe Verified 02/16/23 15:40 [From Jardiance] atorvastatin AdvReac Mild Joint Aches Verified 02/16/23 15:40 - Past Medical History Past Medical History: Yes Neurological History: Stroke ENT History: Cataracts Cardiac History: Arrhythmia, Coronary Artery Disease, High Cholesterol, Hypertension Respiratory History: Sleep Apnea Endocrine Medical History: Diabetes Type II, Hyperthyroidism Musculoskelatal History: Degenerative Disk Disease, Osteoarthritis GI Medical History: GI Bleed History: No Pertinent History Pyscho-Social History: No Pertinent History Male Reproductive Disorders: No Pertinent History Comment: HX OF A-FIB WITH CARDIOVERSION X 2 AND SCHEDULED FOR ANOTHER 01/25/23 WITH WATCHMAN PLACEMENT. HX OF CAD WITH CABG X 2 AND STENTS X 2. BILATERAL SHOULDER SXs - LEFT 2006 RC REPAIR, RIGHT 2015 WITH RC AND BICEPS REPAIR. HX OF BILATERAL KNEE REPLACEMENT 02/2022 RIGHT, 07/01 LEFT. HX OF STAPH INFECTION RIGHT REQUIRING SECOND SURGERY. LEFT KNEE HAD HEMATOMA REQUIRING DRAINING AND CONTINUES TO HAVE TENDERNESS. ONLY THERAPY WAS HOME HEALTH. - Past Surgical History Past Surgical History: Yes Neuro Surgical History: No Pertinent History Cardiac History: Other Respiratory Surgery: No Pertinent History GI Surgical History: No Pertinent History Genitourinary Surgical Hx: No Pertinent History Musculskeletal Surgical Hx: Other Male Surgical History: No Pertinent History Other Surgical History: cardiac ablation, bilateral knee acl and other procedures, multiple knee surgeries. bilateral rotator cuff repairs. bilat shoulders,elbow surgery bilat with rods places then removed rods, right wrist surgery, broken ribs pneumothorax from fall 1994, - Social History Smoking Status: Never smoker Exposure to second hand smoke: No Alcohol: None Drug Use: none - Physical Exam Vital Signs: Vital Signs - 24 hr Temp Pulse Resp BP BP Pulse Ox 02/16/23 21:45 97.5 F 65 19 135/86 94 L 02/16/23 21:15 68 18 136/90 95 02/16/23 21:01 66 17 121/73 94 L 02/16/23 20:51 67 18 125/73 02/16/23 20:50 68 23 02/16/23 20:49 69 18 96 02/16/23 20:16 132/80 02/16/23 20:00 72 27 H 138/87 94 L 02/16/23 19:45 68 18 144/84 96 02/16/23 19:30 70 22 150/89 98 02/16/23 19:15 71 20 160/97 96 02/16/23 19:09 74 26 H 149/92 95 02/16/23 19:00 70 25 H 146/97 94 L 02/16/23 18:30 68 24 158/97 94 L 02/16/23 18:15 67 22 136/83 95 02/16/23 18:11 68 22 149/86 96 02/16/23 18:00 67 22 149/86 94 L 02/16/23 17:56 70 21 158/91 96 02/16/23 17:50 67 02/16/23 17:47 66 20 96 02/16/23 17:30 65 18 146/90 96 02/16/23 17:15 68 20 161/94 02/16/23 17:14 70 22 163/97 91 L 02/16/23 16:10 68 25 H 147/94 93 L 02/16/23 16:00 67 29 H 153/86 94 L 02/16/23 15:48 68 17 158/93 93 L 02/16/23 15:30 98.1 F 70 28 H 152/103 96 General Appearance: no apparent distress Neurologic Exam: alert, oriented x 3 Eye Exam: PERRL/EOMI Ears, Nose, Throat Exam: normal ENT inspection Neck Exam: normal inspection Respiratory Exam: normal breath sounds Cardiovascular Exam: regular rate/rhythm Results - Labs Lab/Micro Results: Lab Results-Last 24 Hours 02/16/23 02/16/23 02/16/23 Range/Units 15:44 16:08 16:10 WBC 10.2 (4.0-10.5) x10^3/uL RBC 3.73 L (4.1-5.6) x10^6/uL Hgb 10.2 L (12.5-18.0) g/dL Hct 34.0 L (42-50) % MCV 91.2 (78-100) fL MCH 27.3 (26-32) pg MCHC 30.0 L (32-36) g/dL RDW 13.7 (11.5-14.0) % Plt Count 355 (150-450) x10^3/uL MPV 9.7 (7.5-11.0) fL Gran % 82.8 H (36.0-66.0) % Immature Gran % (Auto) 0.8 H (0.00-0.4) % Nucleat RBC Rel Count 0.0 (0.00-0.1) % Eos # (Auto) 0.01 (0-0.5) x10^3/uL Immature Gran # (Auto) 0.08 H (0.00-0.03) x10^3u/L Absolute Lymphs (auto) 0.56 L (1.0-4.6) x10^3/uL Absolute Monos (auto) 1.09 (0.0-1.3) x10^3/uL Absolute Nucleated RBC 0.00 (0.00-0.01) x10^3u/L Lymphocytes % 5.5 L (24.0-44.0) % Monocytes % 10.7 (0.0-12.0) % Eosinophils % 0.1 (0.00-5.0) % Basophils % 0.1 (0.0-0.4) % Absolute Granulocytes 8.43 H (1.4-6.9) x10^3/uL Basophils # 0.01 (0-0.4) x10^3/uL Sodium (137-145) mmol/L Potassium (3.5-5.1) mmol/L Chloride (98-107) mmol/L Carbon Dioxide (22-30) mmol/L Anion Gap (5-15) MEQ/L BUN (9-20) mg/dL Creatinine (0.66-1.25) mg/dL Estimated GFR ML/MIN Glucose (74-106) mg/dL POC Glucometer 163 H (74 to 106) mg/dL Calcium (8.4-10.2) mg/dL Magnesium (1.6-2.3) mg/dL Total Bilirubin (0.2-1.3) mg/dL AST (17-59) U/L ALT (0-50) U/L Alkaline Phosphatase (38-126) U/L Troponin I (0.000-0.034) ng/mL NT-Pro-B Natriuret Pep (<300) pg/mL Serum Total Protein (6.3-8.2) g/dL Albumin (3.5-5.0) g/dL Thyroxine (T4) (5.53-10.96) ug/dL TSH 3rd Generation (0.47-4.68) mIU/L Urine Color Yellow (Yellow) Urine Appearance Clear (Clear) Urine pH 6.5 (4.6-8.0) Ur Specific [place] 1.020 (1.005-1.030) Urine Protein Trace A (Negative) Urine Glucose (UA) 100 A (Negative) mg/dL Urine Ketones Negative (Negative) Urine Blood Negative (Negative) Urine Nitrite Negative (Negative) Urine Bilirubin Negative (Negative) Urine Urobilinogen 2.0 A (0.2) mg/dL Ur Leukocyte Esterase Negative (Negative) U Hyaline Cast (Auto) NONE SEEN (0-2) /LPF Urine Microscopic RBC 0-2 (0-5) /HPF Urine Microscopic WBC 0-2 (0-5) /HPF Ur Epithelial Cells None Seen (None Seen) /HPF Urine Bacteria None Seen (None Seen) /HPF Urine Culture Reflexed NO (NO) Slides for Path Review YES 02/16/23 02/16/23 02/16/23 Range/Units 16:10 16:10 16:10 WBC (4.0-10.5) x10^3/uL RBC (4.1-5.6) x10^6/uL Hgb (12.5-18.0) g/dL Hct (42-50) % MCV (78-100) fL MCH (26-32) pg MCHC (32-36) g/dL RDW (11.5-14.0) % Plt Count (150-450) x10^3/uL MPV (7.5-11.0) fL Gran % (36.0-66.0) % Immature Gran % (Auto) (0.00-0.4) % Nucleat RBC Rel Count (0.00-0.1) % Eos # (Auto) (0-0.5) x10^3/uL Immature Gran # (Auto) (0.00-0.03) x10^3u/L Absolute Lymphs (auto) (1.0-4.6) x10^3/uL Absolute Monos (auto) (0.0-1.3) x10^3/uL Absolute Nucleated RBC (0.00-0.01) x10^3u/L Lymphocytes % (24.0-44.0) % Monocytes % (0.0-12.0) % Eosinophils % (0.00-5.0) % Basophils % (0.0-0.4) % Absolute Granulocytes (1.4-6.9) x10^3/uL Basophils # (0-0.4) x10^3/uL Sodium 133 L (137-145) mmol/L Potassium 5.0 (3.5-5.1) mmol/L Chloride 102 (98-107) mmol/L Carbon Dioxide 21 L (22-30) mmol/L Anion Gap 14.8 (5-15) MEQ/L BUN 30 H (9-20) mg/dL Creatinine 1.11 (0.66-1.25) mg/dL Estimated GFR 71.4 ML/MIN Glucose 153 H (74-106) mg/dL POC Glucometer (74 to 106) mg/dL Calcium 9.2 (8.4-10.2) mg/dL Magnesium 2.1 (1.6-2.3) mg/dL Total Bilirubin 0.50 (0.2-1.3) mg/dL AST 19 (17-59) U/L ALT 20 (0-50) U/L Alkaline Phosphatase 117 (38-126) U/L Troponin I 0.025 (0.000-0.034) ng/mL NT-Pro-B Natriuret Pep 2510 (<300) pg/mL Serum Total Protein 6.0 L (6.3-8.2) g/dL Albumin 3.6 (3.5-5.0) g/dL Thyroxine (T4) 14.7 H (5.53-10.96) ug/dL TSH 3rd Generation < 0.015 L (0.47-4.68) mIU/L Urine Color (Yellow) Urine Appearance (Clear) Urine pH (4.6-8.0) Ur Specific [place] (1.005-1.030) Urine Protein (Negative) Urine Glucose (UA) (Negative) mg/dL Urine Ketones (Negative) Urine Blood (Negative) Urine Nitrite (Negative) Urine Bilirubin (Negative) Urine Urobilinogen (0.2) mg/dL Ur Leukocyte Esterase (Negative) U Hyaline Cast (Auto) (0-2) /LPF Urine Microscopic RBC (0-5) /HPF Urine Microscopic WBC (0-5) /HPF Ur Epithelial Cells (None Seen) /HPF Urine Bacteria (None Seen) /HPF Urine Culture Reflexed (NO) Slides for Path Review 02/16/23 Range/Units 20:32 WBC (4.0-10.5) x10^3/uL RBC (4.1-5.6) x10^6/uL Hgb (12.5-18.0) g/dL Hct (42-50) % MCV (78-100) fL MCH (26-32) pg MCHC (32-36) g/dL RDW (11.5-14.0) % Plt Count (150-450) x10^3/uL MPV (7.5-11.0) fL Gran % (36.0-66.0) % Immature Gran % (Auto) (0.00-0.4) % Nucleat RBC Rel Count (0.00-0.1) % Eos # (Auto) (0-0.5) x10^3/uL Immature Gran # (Auto) (0.00-0.03) x10^3u/L Absolute Lymphs (auto) (1.0-4.6) x10^3/uL Absolute Monos (auto) (0.0-1.3) x10^3/uL Absolute Nucleated RBC (0.00-0.01) x10^3u/L Lymphocytes % (24.0-44.0) % Monocytes % (0.0-12.0) % Eosinophils % (0.00-5.0) % Basophils % (0.0-0.4) % Absolute Granulocytes (1.4-6.9) x10^3/uL Basophils # (0-0.4) x10^3/uL Sodium (137-145) mmol/L Potassium (3.5-5.1) mmol/L Chloride (98-107) mmol/L Carbon Dioxide (22-30) mmol/L Anion Gap (5-15) MEQ/L BUN (9-20) mg/dL Creatinine (0.66-1.25) mg/dL Estimated GFR ML/MIN Glucose (74-106) mg/dL POC Glucometer (74 to 106) mg/dL Calcium (8.4-10.2) mg/dL Magnesium (1.6-2.3) mg/dL Total Bilirubin (0.2-1.3) mg/dL AST (17-59) U/L ALT (0-50) U/L Alkaline Phosphatase (38-126) U/L Troponin I 0.024 (0.000-0.034) ng/mL NT-Pro-B Natriuret Pep (<300) pg/mL Serum Total Protein (6.3-8.2) g/dL Albumin (3.5-5.0) g/dL Thyroxine (T4) (5.53-10.96) ug/dL TSH 3rd Generation (0.47-4.68) mIU/L Urine Color (Yellow) Urine Appearance (Clear) Urine pH (4.6-8.0) Ur Specific [place] (1.005-1.030) Urine Protein (Negative) Urine Glucose (UA) (Negative) mg/dL Urine Ketones (Negative) Urine Blood (Negative) Urine Nitrite (Negative) Urine Bilirubin (Negative) Urine Urobilinogen (0.2) mg/dL Ur Leukocyte Esterase (Negative) U Hyaline Cast (Auto) (0-2) /LPF Urine Microscopic RBC (0-5) /HPF Urine Microscopic WBC (0-5) /HPF Ur Epithelial Cells (None Seen) /HPF Urine Bacteria (None Seen) /HPF Urine Culture Reflexed (NO) Slides for Path Review Accuchecks Date 02/16/23 Time 15:44 - Radiology Impressions Radiology Exams & Impressions: Radiology Procedures Category Date Time Status CHEST 1 VIEW (PORTABLE) Stat Exams 02/16/23 16:13 Completed HEAD WITHOUT CONTRAST [CT] Stat Exams 02/16/23 16:01 Completed Assessment/Plan (1) Cerebral ischemia Current Visit: Yes Status: Acute Code(s): I67.82 - CEREBRAL ISCHEMIA (2) Hypertension Current Visit: Yes Status: Acute Code(s): I10 - ESSENTIAL (PRIMARY) HYPERTENSION (3) Congestive heart failure Current Visit: No Status: Acute Assessment & Plan: ASSESSMENT #Right mid to posterior temporal parietal lobe ischemia #History of hypertension #History of A-fib #History of hyperthyroid #History of CHF PLAN -Follow neuro exam -Monitor on telemetry -Echo with bubble study -PT/OT/ST -Aspirin -MRI -Follow-up neurology recommendations -Resume home medications Pending transfer to [facility] Entire encounter performed via telemedicine Code(s): I50.9 - HEART FAILURE, UNSPECIFIED Telemedicine Encounter - Telemedicine Encounter Telemedicine Encounter: The entirety of this encounter was performed via Telemedicine"
[2023-02-16] MEDS ORDERED: TYLENOL 325 MG PO PRN (23:59)
[2023-02-16] MEDS ORDERED: Docusate Sodium 100 MG PO PRN (23:59)
[2023-02-16] MEDS ORDERED: Zofran 4 MG/2 ML VIAL IV PRN (23:59)
[2023-02-17 05:18] LABS: Hematocrit 35.6 % (42-50); Hemoglobin 10.6 g/dL (12.5-18.0); Mean Cell Volume 91.3 fL (78-100); Mean Corpuscular Hemoglobin 27.2 pg (26-32); Mean Corpuscular Hgb Concent. 29.8 g/dL (32-36); Platelet Count 382 x10^3/uL (150-450); Red Cell Distribution Width 13.8 % (11.5-14.0); White Blood Count 9.2 x10^3/uL (4.0-10.5)
[2023-02-17 05:26] LABS: ANION GAP 15.8 MEQ/L (5-15); Calcium 9.3 mg/dL (8.4-10.2); Creatinine 1 1.23 mg/dL (0.66-1.25); EST GLOMERULAR FILTRATION RATE 63.2 ML/MIN; Potassium 4.7 mmol/L (3.5-5.1)
--- NOTE | 2023-02-17 06:56 | PCM.NOTE ---
Date and Time: 02/17/23 0656 OBJECTIVE DATA Vital Signs: Vital Signs - 24 hr Temp Pulse Resp BP BP Pulse Ox 02/17/23 04:00 97.9 F 64 19 123/72 95 02/17/23 02:00 61 02/17/23 00:05 93 L 02/17/23 00:00 97.8 F 70 17 115/81 93 L 02/16/23 21:45 97.5 F 65 19 135/86 94 L 02/16/23 21:15 68 18 136/90 95 02/16/23 21:01 66 17 121/73 94 L 02/16/23 20:51 67 18 125/73 02/16/23 20:50 68 23 02/16/23 20:49 69 18 96 02/16/23 20:16 132/80 02/16/23 20:00 72 27 H 138/87 94 L 02/16/23 19:45 68 18 144/84 96 02/16/23 19:30 70 22 150/89 98 02/16/23 19:15 71 20 160/97 96 02/16/23 19:09 74 26 H 149/92 95 02/16/23 19:00 70 25 H 146/97 94 L 02/16/23 18:30 68 24 158/97 94 L 02/16/23 18:15 67 22 136/83 95 02/16/23 18:11 68 22 149/86 96 02/16/23 18:00 67 22 149/86 94 L 02/16/23 17:56 70 21 158/91 96 02/16/23 17:50 67 02/16/23 17:47 66 20 96 02/16/23 17:30 65 18 146/90 96 02/16/23 17:15 68 20 161/94 02/16/23 17:14 70 22 163/97 91 L 02/16/23 16:10 68 25 H 147/94 93 L 02/16/23 16:00 67 29 H 153/86 94 L 02/16/23 15:48 68 17 158/93 93 L 02/16/23 15:30 98.1 F 70 28 H 152/103 96 Pain Assessment - Last Documented Pain Intensity 0 Intake and Output: Intake & Output 02/14/23 02/15/23 02/16/23 02/17/23 11:59 11:59 11:59 11:59 Intake Total 200 Balance 200 Weight 90.7 kg Lab Results: Lab Results-Last 24 Hours 02/16/23 02/16/23 02/16/23 Range/Units 15:44 16:08 16:10 WBC 10.2 (4.0-10.5) x10^3/uL RBC 3.73 L (4.1-5.6) x10^6/uL Hgb 10.2 L (12.5-18.0) g/dL Hct 34.0 L (42-50) % MCV 91.2 (78-100) fL MCH 27.3 (26-32) pg MCHC 30.0 L (32-36) g/dL RDW 13.7 (11.5-14.0) % Plt Count 355 (150-450) x10^3/uL MPV 9.7 (7.5-11.0) fL Gran % 82.8 H (36.0-66.0) % Immature Gran % (Auto) 0.8 H (0.00-0.4) % Nucleat RBC Rel Count 0.0 (0.00-0.1) % Eos # (Auto) 0.01 (0-0.5) x10^3/uL Immature Gran # (Auto) 0.08 H (0.00-0.03) x10^3u/L Absolute Lymphs (auto) 0.56 L (1.0-4.6) x10^3/uL Absolute Monos (auto) 1.09 (0.0-1.3) x10^3/uL Absolute Nucleated RBC 0.00 (0.00-0.01) x10^3u/L Lymphocytes % 5.5 L (24.0-44.0) % Monocytes % 10.7 (0.0-12.0) % Eosinophils % 0.1 (0.00-5.0) % Basophils % 0.1 (0.0-0.4) % Absolute Granulocytes 8.43 H (1.4-6.9) x10^3/uL Basophils # 0.01 (0-0.4) x10^3/uL Sodium (137-145) mmol/L Potassium (3.5-5.1) mmol/L Chloride (98-107) mmol/L Carbon Dioxide (22-30) mmol/L Anion Gap (5-15) MEQ/L BUN (9-20) mg/dL Creatinine (0.66-1.25) mg/dL Estimated GFR ML/MIN Glucose (74-106) mg/dL POC Glucometer 163 H (74 to 106) mg/dL Calcium (8.4-10.2) mg/dL Magnesium (1.6-2.3) mg/dL Total Bilirubin (0.2-1.3) mg/dL AST (17-59) U/L ALT (0-50) U/L Alkaline Phosphatase (38-126) U/L Troponin I (0.000-0.034) ng/mL NT-Pro-B Natriuret Pep (<300) pg/mL Serum Total Protein (6.3-8.2) g/dL Albumin (3.5-5.0) g/dL Thyroxine (T4) (5.53-10.96) ug/dL TSH 3rd Generation (0.47-4.68) mIU/L Urine Color Yellow (Yellow) Urine Appearance Clear (Clear) Urine pH 6.5 (4.6-8.0) Ur Specific [place] 1.020 (1.005-1.030) Urine Protein Trace A (Negative) Urine Glucose (UA) 100 A (Negative) mg/dL Urine Ketones Negative (Negative) Urine Blood Negative (Negative) Urine Nitrite Negative (Negative) Urine Bilirubin Negative (Negative) Urine Urobilinogen 2.0 A (0.2) mg/dL Ur Leukocyte Esterase Negative (Negative) U Hyaline Cast (Auto) NONE SEEN (0-2) /LPF Urine Microscopic RBC 0-2 (0-5) /HPF Urine Microscopic WBC 0-2 (0-5) /HPF Ur Epithelial Cells None Seen (None Seen) /HPF Urine Bacteria None Seen (None Seen) /HPF Urine Culture Reflexed NO (NO) Slides for Path Review YES 02/16/23 02/16/23 02/16/23 Range/Units 16:10 16:10 16:10 WBC (4.0-10.5) x10^3/uL RBC (4.1-5.6) x10^6/uL Hgb (12.5-18.0) g/dL Hct (42-50) % MCV (78-100) fL MCH (26-32) pg MCHC (32-36) g/dL RDW (11.5-14.0) % Plt Count (150-450) x10^3/uL MPV (7.5-11.0) fL Gran % (36.0-66.0) % Immature Gran % (Auto) (0.00-0.4) % Nucleat RBC Rel Count (0.00-0.1) % Eos # (Auto) (0-0.5) x10^3/uL Immature Gran # (Auto) (0.00-0.03) x10^3u/L Absolute Lymphs (auto) (1.0-4.6) x10^3/uL Absolute Monos (auto) (0.0-1.3) x10^3/uL Absolute Nucleated RBC (0.00-0.01) x10^3u/L Lymphocytes % (24.0-44.0) % Monocytes % (0.0-12.0) % Eosinophils % (0.00-5.0) % Basophils % (0.0-0.4) % Absolute Granulocytes (1.4-6.9) x10^3/uL Basophils # (0-0.4) x10^3/uL Sodium 133 L (137-145) mmol/L Potassium 5.0 (3.5-5.1) mmol/L Chloride 102 (98-107) mmol/L Carbon Dioxide 21 L (22-30) mmol/L Anion Gap 14.8 (5-15) MEQ/L BUN 30 H (9-20) mg/dL Creatinine 1.11 (0.66-1.25) mg/dL Estimated GFR 71.4 ML/MIN Glucose 153 H (74-106) mg/dL POC Glucometer (74 to 106) mg/dL Calcium 9.2 (8.4-10.2) mg/dL Magnesium 2.1 (1.6-2.3) mg/dL Total Bilirubin 0.50 (0.2-1.3) mg/dL AST 19 (17-59) U/L ALT 20 (0-50) U/L Alkaline Phosphatase 117 (38-126) U/L Troponin I 0.025 (0.000-0.034) ng/mL NT-Pro-B Natriuret Pep 2510 (<300) pg/mL Serum Total Protein 6.0 L (6.3-8.2) g/dL Albumin 3.6 (3.5-5.0) g/dL Thyroxine (T4) 14.7 H (5.53-10.96) ug/dL TSH 3rd Generation < 0.015 L (0.47-4.68) mIU/L Urine Color (Yellow) Urine Appearance (Clear) Urine pH (4.6-8.0) Ur Specific [place] (1.005-1.030) Urine Protein (Negative) Urine Glucose (UA) (Negative) mg/dL Urine Ketones (Negative) Urine Blood (Negative) Urine Nitrite (Negative) Urine Bilirubin (Negative) Urine Urobilinogen (0.2) mg/dL Ur Leukocyte Esterase (Negative) U Hyaline Cast (Auto) (0-2) /LPF Urine Microscopic RBC (0-5) /HPF Urine Microscopic WBC (0-5) /HPF Ur Epithelial Cells (None Seen) /HPF Urine Bacteria (None Seen) /HPF Urine Culture Reflexed (NO) Slides for Path Review 02/16/23 02/17/23 02/17/23 Range/Units 20:32 00:15 04:37 WBC 9.2 (4.0-10.5) x10^3/uL RBC 3.90 L (4.1-5.6) x10^6/uL Hgb 10.6 L (12.5-18.0) g/dL Hct 35.6 L (42-50) % MCV 91.3 (78-100) fL MCH 27.2 (26-32) pg MCHC 29.8 L (32-36) g/dL RDW 13.8 (11.5-14.0) % Plt Count 382 (150-450) x10^3/uL MPV 10.0 (7.5-11.0) fL Gran % (36.0-66.0) % Immature Gran % (Auto) (0.00-0.4) % Nucleat RBC Rel Count (0.00-0.1) % Eos # (Auto) (0-0.5) x10^3/uL Immature Gran # (Auto) (0.00-0.03) x10^3u/L Absolute Lymphs (auto) (1.0-4.6) x10^3/uL Absolute Monos (auto) (0.0-1.3) x10^3/uL Absolute Nucleated RBC (0.00-0.01) x10^3u/L Lymphocytes % (24.0-44.0) % Monocytes % (0.0-12.0) % Eosinophils % (0.00-5.0) % Basophils % (0.0-0.4) % Absolute Granulocytes (1.4-6.9) x10^3/uL Basophils # (0-0.4) x10^3/uL Sodium (137-145) mmol/L Potassium (3.5-5.1) mmol/L Chloride (98-107) mmol/L Carbon Dioxide (22-30) mmol/L Anion Gap (5-15) MEQ/L BUN (9-20) mg/dL Creatinine (0.66-1.25) mg/dL Estimated GFR ML/MIN Glucose (74-106) mg/dL POC Glucometer (74 to 106) mg/dL Calcium (8.4-10.2) mg/dL Magnesium (1.6-2.3) mg/dL Total Bilirubin (0.2-1.3) mg/dL AST (17-59) U/L ALT (0-50) U/L Alkaline Phosphatase (38-126) U/L Troponin I 0.024 0.029 (0.000-0.034) ng/mL NT-Pro-B Natriuret Pep (<300) pg/mL Serum Total Protein (6.3-8.2) g/dL Albumin (3.5-5.0) g/dL Thyroxine (T4) (5.53-10.96) ug/dL TSH 3rd Generation (0.47-4.68) mIU/L Urine Color (Yellow) Urine Appearance (Clear) Urine pH (4.6-8.0) Ur Specific [place] (1.005-1.030) Urine Protein (Negative) Urine Glucose (UA) (Negative) mg/dL Urine Ketones (Negative) Urine Blood (Negative) Urine Nitrite (Negative) Urine Bilirubin (Negative) Urine Urobilinogen (0.2) mg/dL Ur Leukocyte Esterase (Negative) U Hyaline Cast (Auto) (0-2) /LPF Urine Microscopic RBC (0-5) /HPF Urine Microscopic WBC (0-5) /HPF Ur Epithelial Cells (None Seen) /HPF Urine Bacteria (None Seen) /HPF Urine Culture Reflexed (NO) Slides for Path Review 02/17/23 02/17/23 Range/Units 04:37 06:54 WBC (4.0-10.5) x10^3/uL RBC (4.1-5.6) x10^6/uL Hgb (12.5-18.0) g/dL Hct (42-50) % MCV (78-100) fL MCH (26-32) pg MCHC (32-36) g/dL RDW (11.5-14.0) % Plt Count (150-450) x10^3/uL MPV (7.5-11.0) fL Gran % (36.0-66.0) % Immature Gran % (Auto) (0.00-0.4) % Nucleat RBC Rel Count (0.00-0.1) % Eos # (Auto) (0-0.5) x10^3/uL Immature Gran # (Auto) (0.00-0.03) x10^3u/L Absolute Lymphs (auto) (1.0-4.6) x10^3/uL Absolute Monos (auto) (0.0-1.3) x10^3/uL Absolute Nucleated RBC (0.00-0.01) x10^3u/L Lymphocytes % (24.0-44.0) % Monocytes % (0.0-12.0) % Eosinophils % (0.00-5.0) % Basophils % (0.0-0.4) % Absolute Granulocytes (1.4-6.9) x10^3/uL Basophils # (0-0.4) x10^3/uL Sodium 135 L (137-145) mmol/L Potassium 4.7 (3.5-5.1) mmol/L Chloride 100 (98-107) mmol/L Carbon Dioxide 23 (22-30) mmol/L Anion Gap 15.8 H (5-15) MEQ/L BUN 33 H (9-20) mg/dL Creatinine 1.23 (0.66-1.25) mg/dL Estimated GFR 63.2 ML/MIN Glucose 166 H (74-106) mg/dL POC Glucometer 143 H (74 to 106) mg/dL Calcium 9.3 (8.4-10.2) mg/dL Magnesium (1.6-2.3) mg/dL Total Bilirubin (0.2-1.3) mg/dL AST (17-59) U/L ALT (0-50) U/L Alkaline Phosphatase (38-126) U/L Troponin I (0.000-0.034) ng/mL NT-Pro-B Natriuret Pep (<300) pg/mL Serum Total Protein (6.3-8.2) g/dL Albumin (3.5-5.0) g/dL Thyroxine (T4) (5.53-10.96) ug/dL TSH 3rd Generation (0.47-4.68) mIU/L Urine Color (Yellow) Urine Appearance (Clear) Urine pH (4.6-8.0) Ur Specific [place] (1.005-1.030) Urine Protein (Negative) Urine Glucose (UA) (Negative) mg/dL Urine Ketones (Negative) Urine Blood (Negative) Urine Nitrite (Negative) Urine Bilirubin (Negative) Urine Urobilinogen (0.2) mg/dL Ur Leukocyte Esterase (Negative) U Hyaline Cast (Auto) (0-2) /LPF Urine Microscopic RBC (0-5) /HPF Urine Microscopic WBC (0-5) /HPF Ur Epithelial Cells (None Seen) /HPF Urine Bacteria (None Seen) /HPF Urine Culture Reflexed (NO) Slides for Path Review Radiology Exams: Radiology Procedures Category Date Time Status CHEST 1 VIEW (PORTABLE) Stat Exams 02/16/23 16:13 Completed ECHO W/2D AND DOPPLER [US] Routine Exams 02/17/23 06:05 Ordered HEAD WITHOUT CONTRAST [CT] Stat Exams 02/16/23 16:01 Completed MRI BRAIN W/O CONTRAST [MRI] Routine Exams 02/17/23 00:01 Ordered Telemedicine Encounter - Telemedicine Encounter Telemedicine Encounter: The entirety of this encounter was performed via Telemedicine"
[2023-02-17] MEDS ORDERED: MEDICATION INTERVENTION MC SCH ×2 (07:30)
[2023-02-17] MEDS: Glucophage 500 MG PO SCH ×2 (08:11→16:35)
[2023-02-17] MEDS ORDERED: PATIENT OWN MEDICATION PO PRN (08:35)
[2023-02-17 08:38] VITALS: RESP 18
[2023-02-17] MEDS ORDERED: ECOTRIN 81 MG PO SCH (10:00)
[2023-02-17] MEDS ORDERED: Toprol Xl 50 MG PO SCH (10:00)
[2023-02-17] MEDS ORDERED: XANAX 1 MG PO ONE (10:00)
[2023-02-17] MEDS ORDERED: NORVASC 5 MG PO SCH (10:00)
[2023-02-17] MEDS ORDERED: Cordarone 200 MG PO SCH (10:00)
[2023-02-17 11:26] VITALS: PULSE 66; TEMP 97.8
--- NOTE | 2023-02-17 12:08 | XRAY ---
Indication: Stroke. Abnormal CT head one day earlier. Sagittal, coronal, and axial MRI brain performed without contrast using T1, T2, FLAIR, diffusion, and ADC sequences. Comparison: None Age-appropriate global atrophy, mild/moderate periventricular degenerative micro-ischemia signal bilaterally, and remote lacunar infarct right basal ganglia. Right mid to posterior temporal lobe demonstrates large focus of cortical/subcortical restricted signal and cytotoxic edema favoring acute ischemia. This measures at least 9.7 x 3.6 x 5.3 cm in greatest AP, transverse, and CC projections respectively. No acute hemorrhage or mass effect. Fourth ventricle is midline without hydrocephalus. 7/8 cranial nerve complex bilaterally symmetric. Normal flow-void signal within the major intracerebral circulation. Normal appearing craniocervical junction and sella turcica. Paranasal sinuses are clear. Impression: 1. Large focus of acute ischemia right temporal lobe as detailed. No acute hemorrhage/mass effect. 2. Atrophy and degenerative micro-ischemia within normal limits for patient's age. Also remote lacunar infarct right basal ganglia.
[2023-02-17 16:23] VITALS: BP 138/90; O2SAT 95
--- NOTE | 2023-02-17 16:31 | PCM.DS ---
Discharge Summary Date of Admission: 02/16/23 21:35 Date of Discharge: 02/17/2023 Admitting Physician: KENDRA SANCHEZ MD Primary Care Provider: MARY GRISSOM Allergies Allergies Sulfa (Sulfonamide Antibiotics) Allergy (Unknown, Verified 02/16/23 15:40) pt had reaction as a child, he does not know what happened. [email or web address] [From Jardiance] Adverse Reaction (Severe, Verified 02/16/23 15:40) UTI atorvastatin Adverse Reaction (Mild, Verified 02/16/23 15:40) [facility] Summary - Hospital Course Hospital Course: Admission information: This is a 72-year-old male admitted after found to have acute stroke. He has past medical history of A-fib on Eliquis and amiodarone as well as prior cardiac ablation and cardioversion and Watchman device, diabetes, hyperlipidemia, hyperthyroid, CAD. He presented to the ED for evaluation of vision changes in the left eye. On arrival he was afebrile, heart rate 70, blood pressure 152/103. Labs significant for WBC 10, hemoglobin 10, platelets 355, sodium 133, serum bicarb 21, glucose 153, TSH undetectable, T4 14.7, UA trace protein and [address] head showed large acute ischemia in the right temporal parietal lobe no hemorrhage or mass effect. Chronic findings including atrophy degenerative microischemia and remote lacunar infarct right basal ganglia. Patient was seen by neurology who recommended continuing aspirin but holding full anticoagulation. Attempts were made to transfer patient for higher level of care however no excepting facility at this time. Currently he reports persistent poor vision. He states right eye is chronically bad. Left eye he is having depth perception difficulties. He also reports new onset [place]ON. He was fe eling dizzy and incoherent but that is better. Hospital Course: The next day patient underwent an MRI that showed 'large focus of acute ischemia right temporal lobe as detailed. No acute hemorrhage/mass effect.' Echo results are pending at this time. Upon question patient did say that he had to stop his eliquis for 4 days last week for a back injection that he received for pain, but otherwise reports compliance with medications. He has persistent symptoms in his left eye today but no other sensory or motor deficit. He is now being transferred to [facility] for further management. - Vitals & Intake/Output Vital Signs: Vital Signs Temperature 97.8 F 02/17/23 16:00 Pulse Rate 66 02/17/23 16:00 Respiratory Rate 18 02/17/23 16:00 Blood Pressure 138/90 02/17/23 16:00 O2 Sat by Pulse Oximetry 95 02/17/23 16:00 Intake & Output: Intake & Output 02/15/23 02/16/23 02/17/23 02/18/23 11:59 11:59 11:59 11:59 Intake Total 560 360 Balance 560 360 Weight 90.7 kg - Lab Result Diagrams: 02/17/23 04:37 02/17/23 04:37 Lab Results-Last 24 Hrs: Lab Results-Last 24 Hours 02/16/23 02/16/23 02/16/23 Range/Units 16:08 16:10 16:10 WBC (4.0-10.5) x10^3/uL RBC (4.1-5.6) x10^6/uL Hgb (12.5-18.0) g/dL Hct (42-50) % MCV (78-100) fL MCH (26-32) pg MCHC (32-36) g/dL RDW (11.5-14.0) % Plt Count (150-450) x10^3/uL MPV (7.5-11.0) fL Sodium 133 L (137-145) mmol/L Potassium 5.0 (3.5-5.1) mmol/L Chloride 102 (98-107) mmol/L Carbon Dioxide 21 L (22-30) mmol/L Anion Gap 14.8 (5-15) MEQ/L BUN 30 H (9-20) mg/dL Creatinine 1.11 (0.66-1.25) mg/dL Estimated GFR 71.4 ML/MIN Glucose 153 H (74-106) mg/dL POC Glucometer (74 to 106) mg/dL Hemoglobin A1c (4.5-6.0) % Calcium 9.2 (8.4-10.2) mg/dL Magnesium 2.1 (1.6-2.3) mg/dL Total Bilirubin 0.50 (0.2-1.3) mg/dL AST 19 (17-59) U/L ALT 20 (0-50) U/L Alkaline Phosphatase 117 (38-126) U/L Troponin I 0.025 (0.000-0.034) ng/mL NT-Pro-B Natriuret Pep 2510 (<300) pg/mL Serum Total Protein 6.0 L (6.3-8.2) g/dL Albumin 3.6 (3.5-5.0) g/dL Thyroxine (T4) (5.53-10.96) ug/dL TSH 3rd Generation (0.47-4.68) mIU/L Urine Color Yellow (Yellow) Urine Appearance Clear (Clear) Urine pH 6.5 (4.6-8.0) Ur Specific [place] 1.020 (1.005-1.030) Urine Protein Trace A (Negative) Urine Glucose (UA) 100 A (Negative) mg/dL Urine Ketones Negative (Negative) Urine Blood Negative (Negative) Urine Nitrite Negative (Negative) Urine Bilirubin Negative (Negative) Urine Urobilinogen 2.0 A (0.2) mg/dL Ur Leukocyte Esterase Negative (Negative) U Hyaline Cast (Auto) NONE SEEN (0-2) /LPF Urine Microscopic RBC 0-2 (0-5) /HPF Urine Microscopic WBC 0-2 (0-5) /HPF Ur Epithelial Cells None Seen (None Seen) /HPF Urine Bacteria None Seen (None Seen) /HPF Urine Culture Reflexed NO (NO) Slides for Path Review YES 02/16/23 02/16/23 02/16/23 Range/Units 16:10 16:10 20:32 WBC (4.0-10.5) x10^3/uL RBC (4.1-5.6) x10^6/uL Hgb (12.5-18.0) g/dL Hct (42-50) % MCV (78-100) fL MCH (26-32) pg MCHC (32-36) g/dL RDW (11.5-14.0) % Plt Count (150-450) x10^3/uL MPV (7.5-11.0) fL Sodium (137-145) mmol/L Potassium (3.5-5.1) mmol/L Chloride (98-107) mmol/L Carbon Dioxide (22-30) mmol/L Anion Gap (5-15) MEQ/L BUN (9-20) mg/dL Creatinine (0.66-1.25) mg/dL Estimated GFR ML/MIN Glucose (74-106) mg/dL POC Glucometer (74 to 106) mg/dL Hemoglobin A1c (4.5-6.0) % Calcium (8.4-10.2) mg/dL Magnesium (1.6-2.3) mg/dL Total Bilirubin (0.2-1.3) mg/dL AST (17-59) U/L ALT (0-50) U/L Alkaline Phosphatase (38-126) U/L Troponin I 0.024 (0.000-0.034) ng/mL NT-Pro-B Natriuret Pep (<300) pg/mL Serum Total Protein (6.3-8.2) g/dL Albumin (3.5-5.0) g/dL Thyroxine (T4) 14.7 H (5.53-10.96) ug/dL TSH 3rd Generation < 0.015 L (0.47-4.68) mIU/L Urine Color (Yellow) Urine Appearance (Clear) Urine pH (4.6-8.0) Ur Specific [place] (1.005-1.030) Urine Protein (Negative) Urine Glucose (UA) (Negative) mg/dL Urine Ketones (Negative) Urine Blood (Negative) Urine Nitrite (Negative) Urine Bilirubin (Negative) Urine Urobilinogen (0.2) mg/dL Ur Leukocyte Esterase (Negative) U Hyaline Cast (Auto) (0-2) /LPF Urine Microscopic RBC (0-5) /HPF Urine Microscopic WBC (0-5) /HPF Ur Epithelial Cells (None Seen) /HPF Urine Bacteria (None Seen) /HPF Urine Culture Reflexed (NO) Slides for Path Review 02/17/23 02/17/23 02/17/23 Range/Units 00:15 04:30 04:37 WBC 9.2 (4.0-10.5) x10^3/uL RBC 3.90 L (4.1-5.6) x10^6/uL Hgb 10.6 L (12.5-18.0) g/dL Hct 35.6 L (42-50) % MCV 91.3 (78-100) fL MCH 27.2 (26-32) pg MCHC 29.8 L (32-36) g/dL RDW 13.8 (11.5-14.0) % Plt Count 382 (150-450) x10^3/uL MPV 10.0 (7.5-11.0) fL Sodium (137-145) mmol/L Potassium (3.5-5.1) mmol/L Chloride (98-107) mmol/L Carbon Dioxide (22-30) mmol/L Anion Gap (5-15) MEQ/L BUN (9-20) mg/dL Creatinine (0.66-1.25) mg/dL Estimated GFR ML/MIN Glucose (74-106) mg/dL POC Glucometer (74 to 106) mg/dL Hemoglobin A1c 5.98 (4.5-6.0) % Calcium (8.4-10.2) mg/dL Magnesium (1.6-2.3) mg/dL Total Bilirubin (0.2-1.3) mg/dL AST (17-59) U/L ALT (0-50) U/L Alkaline Phosphatase (38-126) U/L Troponin I 0.029 (0.000-0.034) ng/mL NT-Pro-B Natriuret Pep (<300) pg/mL Serum Total Protein (6.3-8.2) g/dL Albumin (3.5-5.0) g/dL Thyroxine (T4) (5.53-10.96) ug/dL TSH 3rd Generation (0.47-4.68) mIU/L Urine Color (Yellow) Urine Appearance (Clear) Urine pH (4.6-8.0) Ur Specific [place] (1.005-1.030) Urine Protein (Negative) Urine Glucose (UA) (Negative) mg/dL Urine Ketones (Negative) Urine Blood (Negative) Urine Nitrite (Negative) Urine Bilirubin (Negative) Urine Urobilinogen (0.2) mg/dL Ur Leukocyte Esterase (Negative) U Hyaline Cast (Auto) (0-2) /LPF Urine Microscopic RBC (0-5) /HPF Urine Microscopic WBC (0-5) /HPF Ur Epithelial Cells (None Seen) /HPF Urine Bacteria (None Seen) /HPF Urine Culture Reflexed (NO) Slides for Path Review 02/17/23 02/17/23 02/17/23 Range/Units 04:37 06:54 12:29 WBC (4.0-10.5) x10^3/uL RBC (4.1-5.6) x10^6/uL Hgb (12.5-18.0) g/dL Hct (42-50) % MCV (78-100) fL MCH (26-32) pg MCHC (32-36) g/dL RDW (11.5-14.0) % Plt Count (150-450) x10^3/uL MPV (7.5-11.0) fL Sodium 135 L (137-145) mmol/L Potassium 4.7 (3.5-5.1) mmol/L Chloride 100 (98-107) mmol/L Carbon Dioxide 23 (22-30) mmol/L Anion Gap 15.8 H (5-15) MEQ/L BUN 33 H (9-20) mg/dL Creatinine 1.23 (0.66-1.25) mg/dL Estimated GFR 63.2 ML/MIN Glucose 166 H (74-106) mg/dL POC Glucometer 143 H 183 H (74 to 106) mg/dL Hemoglobin A1c (4.5-6.0) % Calcium 9.3 (8.4-10.2) mg/dL Magnesium (1.6-2.3) mg/dL Total Bilirubin (0.2-1.3) mg/dL AST (17-59) U/L ALT (0-50) U/L Alkaline Phosphatase (38-126) U/L Troponin I (0.000-0.034) ng/mL NT-Pro-B Natriuret Pep (<300) pg/mL Serum Total Protein (6.3-8.2) g/dL Albumin (3.5-5.0) g/dL Thyroxine (T4) (5.53-10.96) ug/dL TSH 3rd Generation (0.47-4.68) mIU/L Urine Color (Yellow) Urine Appearance (Clear) Urine pH (4.6-8.0) Ur Specific [place] (1.005-1.030) Urine Protein (Negative) Urine Glucose (UA) (Negative) mg/dL Urine Ketones (Negative) Urine Blood (Negative) Urine Nitrite (Negative) Urine Bilirubin (Negative) Urine Urobilinogen (0.2) mg/dL Ur Leukocyte Esterase (Negative) U Hyaline Cast (Auto) (0-2) /LPF Urine Microscopic RBC (0-5) /HPF Urine Microscopic WBC (0-5) /HPF Ur Epithelial Cells (None Seen) /HPF Urine Bacteria (None Seen) /HPF Urine Culture Reflexed (NO) Slides for Path Review 02/17/23 Range/Units 15:56 WBC (4.0-10.5) x10^3/uL RBC (4.1-5.6) x10^6/uL Hgb (12.5-18.0) g/dL Hct (42-50) % MCV (78-100) fL MCH (26-32) pg MCHC (32-36) g/dL RDW (11.5-14.0) % Plt Count (150-450) x10^3/uL MPV (7.5-11.0) fL Sodium (137-145) mmol/L Potassium (3.5-5.1) mmol/L Chloride (98-107) mmol/L Carbon Dioxide (22-30) mmol/L Anion Gap (5-15) MEQ/L BUN (9-20) mg/dL Creatinine (0.66-1.25) mg/dL Estimated GFR ML/MIN Glucose (74-106) mg/dL POC Glucometer 202 H (74 to 106) mg/dL Hemoglobin A1c (4.5-6.0) % Calcium (8.4-10.2) mg/dL Magnesium (1.6-2.3) mg/dL Total Bilirubin (0.2-1.3) mg/dL AST (17-59) U/L ALT (0-50) U/L Alkaline Phosphatase (38-126) U/L Troponin I (0.000-0.034) ng/mL NT-Pro-B Natriuret Pep (<300) pg/mL Serum Total Protein (6.3-8.2) g/dL Albumin (3.5-5.0) g/dL Thyroxine (T4) (5.53-10.96) ug/dL TSH 3rd Generation (0.47-4.68) mIU/L Urine Color (Yellow) Urine Appearance (Clear) Urine pH (4.6-8.0) Ur Specific [place] (1.005-1.030) Urine Protein (Negative) Urine Glucose (UA) (Negative) mg/dL Urine Ketones (Negative) Urine Blood (Negative) Urine Nitrite (Negative) Urine Bilirubin (Negative) Urine Urobilinogen (0.2) mg/dL Ur Leukocyte Esterase (Negative) U Hyaline Cast (Auto) (0-2) /LPF Urine Microscopic RBC (0-5) /HPF Urine Microscopic WBC (0-5) /HPF Ur Epithelial Cells (None Seen) /HPF Urine Bacteria (None Seen) /HPF Urine Culture Reflexed (NO) Slides for Path Review Micro Results-Entire Visit: Accuchecks Date 02/17/23 Date 02/17/23 Time 16:22 Time 11:25 - Radiology Exams Ordered Rad Exams-Entire Visit: Radiology Procedures Category Date Time Status CHEST 1 VIEW (PORTABLE) Stat Exams 02/16/23 16:13 Completed ECHO W/2D AND DOPPLER [US] Routine Exams 02/17/23 06:05 Taken HEAD WITHOUT CONTRAST [CT] Stat Exams 02/16/23 16:01 Completed MRI BRAIN W/O CONTRAST [MRI] Routine Exams 02/17/23 00:01 Completed - Procedures and Test Procedures and Tests throughout Hospitalization: Therapy Orders & Screens 02/16/23 23:58 PT Eval & Treat (MD Order) ONCE Reason for Eval:: stroke Diagnosis: Stroke OT Eval and Treat (MD Order) ONCE Comment: Physician Instructions: Reason For Exam: Evaluate: Yes Diagnosis: Stroke Discharge Exam General Appearance: no apparent distress, alert Neurologic Exam: alert, oriented x 3, cooperative, normal mood/affect, nml cereb ellar function, sensation nml, other (patient reports blurred vision in left eye, chronic blurred vision in right eye), No motor deficits Eye Exam: EOMI, eyes nml inspection, other (blurred vision on both eyes (left eye acute)) Ears, Nose, Throat Exam: normal ENT inspection, pharynx normal, moist mucous membranes Neck Exam: normal inspection, non-tender, supple, full range of motion Respiratory Exam: normal breath sounds, lungs clear, No respiratory distress Cardiovascular Exam: regular rate/rhythm, normal heart sounds Gastrointestinal/Abdomen Exam: soft, No tenderness, No mass Male Genitalia Exam: deferred Rectal Exam: deferred Back Exam: normal inspection Extremity Exam: normal inspection, normal range of motion Skin Exam: normal color, warm, dry Telemedicine Encounter - Telemedicine Encounter Telemedicine Encounter: The entirety of this encounter was performed via Telemedicine" - Discharge Disposition: DC TO OTHER HOSP Condition: Stable Prescriptions: Continue Semaglutide [Ozempic] 0.25 mg SQ WEEKLY Furosemide [Lasix] 40 mg PO DAILY PRN PRN PRN Reason: edema Tamsulosin HCl 0.4 mg [Flomax 0.4 MG] 0.4 mg PO QHS Metformin HCl 500 mg [Glucophage 500 MG] 1,000 mg PO BIDAC Hydrocodone/Acetaminophen [Hydrocodone-Acetamin 7.5-325] 1 tab PO Q4-6HPRN PRN PRN Reason: Pain Amiodarone HCl 200 mg [Cordarone 200 MG] 200 mg PO DAILY Aspirin EC 81 mg [Ecotrin 81 mg] 81 mg PO DAILY Metoprolol Succinate 50 mg [Toprol Xl 50 MG] 50 mg PO DAILY Amlodipine Besylate 5 mg [Norvasc 5 mg] 0 mg PO DAILY Aspirin/Acetaminophen/Caffeine [Excedrin Extra Strength Caplet] 1 tab PO DAILY PRN PRN PRN Reason: Headache Rosuvastatin Calcium 10 mg PO QHS Non-Formulary Drug [Non-Formulary Bulk Item] 2 tab PO DAILY Sumatriptan Succinate [Imitrex] 100 mg PO DAILY PRN PRN PRN Reason: migraine Discontinued Apixaban [Eliquis] 5 mg PO BID Follow up with: MARY GRISSOM MD [Primary Care Provider] -
[2023-02-17] MEDS ORDERED: ZOCOR 20MG PO SCH (22:00)
[2023-02-17] MEDS ORDERED: Flomax 0.4 MG PO SCH (22:00)
[2023-02-17] MEDS ORDERED: NON-FORMULARY ITEM (Rosuvastatin Calcium [Rosuvastatin Calcium] 10 MG Tablet) PO SCH (22:00)
== END 2023-02-17 17:00 ==
LOC: ED 15:30 → MED SURG 21:35
PROVIDERS: ADMIT Internal Medicine; ATTEND Internal Medicine
DX: I67.82 Cerebral ischemia (principal); I11.0 Hypertensive heart disease with heart failure; I50.9 Heart failure, unspecified; I48.91 Unspecified atrial fibrillation; I25.10 Atherosclerotic heart disease of native coronary artery without angina pectoris; E11.9 Type 2 diabetes mellitus without complications; E05.90 Thyrotoxicosis, unspecified without thyrotoxic crisis or storm; E78.5 Hyperlipidemia, unspecified; Z95.0 Presence of cardiac pacemaker; Z79.01 Long term (current) use of anticoagulants; Z79.899 Other long term (current) drug therapy; Z20.828 Contact with and (suspected) exposure to other viral communicable diseases
CPT/HCPCS: 36000; 36415; 70450; 70551; 71045; 80048; 80053; 81001; 82947; 83036; 83735; 83880; 84436; 84443; 84484; 85025; 85027; 93005; 93041; 93268; 93306; 94760; 94762; 96374; 96375; 99285; 99291; J1940; J2270; J2405; Q3014; A9270-GY; G0378